=== PATIENT | female | born 1935 | race Caucasian/White ===

== ENCOUNTER 2017-03-18 15:08 | Emergency (ER) | payer OTHER ==
[~2017-03-18] VITALS: Ht 167.6 cm; Wt 56.7 kg
[~2017-03-18 15:08] MED LIST: ACET325T16 PO; ALPR0.25 PO; AMIO200T2 PO; ATOR20TA58 PO; ATOR40TA PO; BUDE10.22 IH; CHOL100013 PO; CITA20TA9 PO; CITA40TA12 PO; CITA40TA5 PO; DIGO125T PO; DILT120C80 PO; DRON400T PO; FAMO-63 PO; FAMO20TA5 PO; FURO-69 PO; FURO40TA4 PO; GLUC100018 PO; HYDR-2766 PO; LEVO112T4 PO; LISI-338 PO; METO10TA81 PO; METO5TAB55 PO; MORP30TA PO; MORP30TA3 PO; MULT1TAB52 PO; MULT1TAB77 PO; OMEP20CA9 PO; OMEP20TA8 PO; ONDA4TAB11 PO; ONDA4TAB7 PO; PANT40TA3 PO; PANT40TA5 PO; POLY17PO29 PO; SIMV40TA3 PO; SOTA80TA48 PO; WARF1TAB7 PO; WARF1TAB74 PO; WARF3TAB7 PO
--- NOTE | 2017-03-18 15:53 | PHYS DOC ---
Past Medical History Past Medical History: A-Fib, Depression, GERD, Hypertension, Hypothyroid, Other Additional Past Medical Histor: dystonia, muscle weakness, torticollis, skin cancer Past Surgical History: Appendectomy, Other Additional Past Surgical Histo: thyroid.cardiac cath Alcohol Use: None Drug Use: None Adult General Chief Complaint Chief Complaint: LOWER EXTREMITY SWELLING HPI HPI 81-year-old female with a history of atrial fibrillation on Coumadin with which she is compliant and who lives in a snf now presents to the emergency department complaining of bilateral lower extremity swelling below the knees with mottled red areas on the front of both ankles. Mild discomfort of both legs because of edema. No chest pain or shortness of breath. Patient has no fevers chills sweats or shaking chills. She feels well and does not think it's an infection. Patient is not sure if she is on a diuretic but states she's been taking her medicines as prescribed. Review of Systems Review of Systems Constitutional: Denies fever or chills [] Eyes: Denies change in visual acuity, redness, or eye pain [] HENT: Denies nasal congestion or sore throat [] Respiratory: Denies cough or shortness of breath [] Cardiovascular: No additional information not addressed in HPI [] GI: Denies abdominal pain, nausea, vomiting, bloody stools or diarrhea [] : Denies dysuria or hematuria [] Musculoskeletal: Denies back pain or joint pain [] Integument: Denies rash or skin lesions [] Neurologic: Denies headache, focal weakness or sensory changes [] Endocrine: Denies polyuria or polydipsia [] Current Medications Current Medications Current Medications Medications (Trade) Dose Ordered Sig/Regan Start Time Stop Time Status Last Admin Dose Admin Furosemide (Lasix) 40 mg 1X ONCE 03/18/17 16:00 03/18/17 16:01 DC 03/18/17 16:21 40 MG Allergies Allergies Allergies Coded Allergies Type Severity Reaction Last Updated Verified No Known Drug Allergies 11/20/13 No Physical Exam Physical Exam Well appearing female no acute distress alert communicative and appropriate. Patient has a resting tremor which she states is her baseline. Clear lungs no Rales, no tachycardia, benign abdomen. 2+ pitting edema bilateral lower extremities below the knees with no asymmetry. Mild lacelike pattern of erythema on the anterior aspect of both ankles. Nontender no warmth or fluctuance or crepitus Constitutional: Well developed, well nourished, no acute distress, non-toxic appearance. [] HENT: Normocephalic, atraumatic, bilateral external ears normal, oropharynx moist, no oral exudates, nose normal. [] Eyes: PERRLA, EOMI, conjunctiva normal, no discharge. [] Neck: Normal range of motion, no tenderness, supple, no stridor. [] Cardiovascular:Heart rate regular rhythm, no murmur [] Lungs & Thorax: Bilateral breath sounds clear to auscultation [] Abdomen: Bowel sounds normal, soft, no tenderness, no masses, no pulsatile masses. [] Skin: Warm, dry, no erythema, no rash. [] Back: No tenderness, no CVA tenderness. [] Extremities: No tenderness, no cyanosis, no clubbing, ROM intact, no edema. [] Neurologic: Alert and oriented X 3, normal motor function, normal sensory function, no focal deficits noted. [] Psychologic: Affect normal, judgement normal, mood normal. [] Current Patient Data Vital Signs Vital Signs Date Time Temp Pulse Resp B/P (MAP) Pulse Ox O2 Delivery O2 Flow Rate FiO2 03/18/17 17:18 80 20 144/83 (103) 91 Room Air 03/18/17 15:28 98.4 98.4 Lab Values Laboratory Tests Test 03/18/17 15:57 White Blood Count 8.4 x10^3/uL (4.0-11.0) Red Blood Count 4.15 x10^6/uL (3.50-5.40) Hemoglobin 12.4 g/dL (12.0-15.5) Hematocrit 37.8 % (36.0-47.0) Mean Corpuscular Volume 91 fL (79-100) Mean Corpuscular Hemoglobin 30 pg (25-35) Mean Corpuscular Hemoglobin Concent 33 g/dL (31-37) Red Cell Distribution Width 15.8 % (11.5-14.5) H Platelet Count 233 x10^3/uL (140-400) Neutrophils (%) (Auto) 54 % (31-73) Lymphocytes (%) (Auto) 33 % (24-48) Monocytes (%) (Auto) 11 % (0-9) H Eosinophils (%) (Auto) 2 % (0-3) Basophils (%) (Auto) 1 % (0-3) Neutrophils # (Auto) 4.5 x10^3uL (1.8-7.7) Lymphocytes # (Auto) 2.7 x10^3/uL (1.0-4.8) Monocytes # (Auto) 0.9 x10^3/uL (0.0-1.1) Eosinophils # (Auto) 0.1 x10^3/uL (0.0-0.7) Basophils # (Auto) 0.1 x10^3/uL (0.0-0.2) Laboratory Tests 03/18/17 15:57 EKG EKG [] Radiology/Procedures Radiology/Procedures Doppler bilateral lower extremities to rule out DVT [] Course & Med Decision Making Course & Med Decision Making Pertinent Labs and Imaging studies reviewed. (See chart for details) Signs and symptoms consistent with exacerbation of lower extremity edema with 2 + pitting edema bilaterally with minimal soft tissue tenderness apparently secondary to distention. No cords appreciated. Neurovascularly intact with good capillary refill distally. Soft compartments. Minimal areas of mild chronic skin changes on the anterior aspect of both ankles and symmetrical with no clinical signs of mellitus. Patient is afebrile well-appearing and feels well she's just concerned about the swelling in her legs, feet and ankles. Doppler of bilateral lower extremities pending to rule out less likely possibility of DVT. Patient is on Lasix additional dose of IV Lasix given in ED. The patient is aware to elevate feet and follow-up with her primary care doctor tomorrow. No further workup or treatment will be indicated, she agrees with outpatient follow-up and strict return precautions will be given Dragon Disclaimer Dragon Disclaimer This electronic medical record was generated, in whole or in part, using a voice recognition dictation system. Departure Departure Impression: Primary Impression: Leg edema Additional Impression: Unspecified skin changes Disposition: 01 HOME, SELF-CARE Condition: GOOD Referrals: CAROLEE DELANEY MD (PCP) Patient Instructions: Peripheral Edema Additional Instructions: You have increased leg edema today. His means you are retaining more fluid in your lower extremities below the knees that is typical for you. I'll redness on the front of both ankles does not represent a skin infection but instead his chronic skin changes as a result of edema and distention of your legs with stretching of the skin. You are on Lasix which is a diuretic, or fluid pill. We have given U an extra dose of Lasix today in your IV to help get some of this fluid off. Up with your doctor tomorrow for reevaluation and to discuss potential change in your diuretic regimen including dose or frequency adjustment of your Lasix therapy. Problem Qualifiers CORINE THORPE MD Mar 18, 2017 15:53
[2017-03-18] MEDS ORDERED: FUROSEMIDE 40 MG/4 ML VIAL. IVP ONE (16:00)
[2017-03-18 16:25] LABS: BASO # 0.1 x10^3/uL (0.0-0.2); BASO % 1 % (0-3); EOS % 2 % (0-3); HEMATOCRIT 37.8 % (36.0-47.0); HEMOGLOBIN 12.4 g/dL (12.0-15.5); LYMPH # 2.7 x10^3/uL (1.0-4.8); LYMPH % 33 % (24-48); MEAN CORPUSCULAR HEMOGLOBIN 30 pg (25-35); MEAN CORPUSCULAR HGB CONC 33 g/dL (31-37); MEAN CORPUSCULAR VOLUME 91 fL (79-100); MONO % 11 % (0-9); NEUT % 54 % (31-73); PLATELET COUNT 233 x10^3/uL (140-400); RED BLOOD COUNT 4.15 x10^6/uL (3.50-5.40); RED CELL DISTRIBUTION WIDTH 15.8 % (11.5-14.5); WHITE BLOOD COUNT 8.4 x10^3/uL (4.0-11.0)
[2017-03-18 17:48] VITALS: BP 143/77
--- NOTE | 2017-03-18 18:13 | RAD ---
Examination: Bilateral Lower Extremity Venous Doppler Ultrasound History: Leg swelling Comparison: None Procedure: Elliott scale, color flow 2D and spectal waveform analysis images are obtained with and without compression in the area of the common femoral vein, superficial femoral vein - femoral vein junction, main femoral vein (superficial femoral vein) and popliteal vein. Veins of the proximal calf are also imaged. Findings: There is normal duplex flow, color flow and compressibility of all visualized vein segments. No evidence of deep venous thrombus is present. Impression: No evidence of DVT. Electronically signed by: Brant Garcia MD (03/18/2017 6:10 PM) [facility]
== END 2017-03-18 18:36 | disposition home or self-care (01) ==
LOC: ER 15:08
DX: R60.0 Localized edema (principal); R23.9 Unspecified skin changes; E03.9 Hypothyroidism, unspecified; I10 Essential (primary) hypertension; I48.91 Unspecified atrial fibrillation; K21.9 Gastro-esophageal reflux disease without esophagitis; Z79.01 Long term (current) use of anticoagulants; Z85.828 Personal history of other malignant neoplasm of skin; Z90.49 Acquired absence of other specified parts of digestive tract
CPT/HCPCS: 36415; 85027; 93970; 96374; 99285; J1940

== ENCOUNTER 2018-01-15 06:05 | Emergency (ER) | payer OTHER | END 2018-01-15 10:10 | LOC: ER 06:05 | DX: S00.93XA Contusion of unspecified part of head, initial encounter (principal); M25.562 Pain in left knee; M25.551 Pain in right hip; I48.91 Unspecified atrial fibrillation; I10 Essential (primary) hypertension; E03.9 Hypothyroidism, unspecified; K21.9 Gastro-esophageal reflux disease without esophagitis; W18.09XA Striking against other object with subsequent fall, initial encounter; Y93.89 Activity, other specified; Y99.8 Other external cause status; Y92.89 Other specified places as the place of occurrence of the external cause | CPT/HCPCS: 70450; 72125; 73521; 73562; 99284; 99284-25; 99285 ==

== ENCOUNTER 2018-05-30 18:57 | Emergency (ER) | payer OTHER ==
[~2018-05-30] VITALS: Ht 162.6 cm; Wt 56.7 kg
[~2018-05-30 18:57] MED LIST changes: -AMIO200T2 PO; +AMIO200T4 PO; +ASPI-612 PO; +CLON0.5T11 PO; +ERGO500027 PO; +ESCITALOPRAM OX10 MG PO; +FERR325T72 PO; +GABA-585 PO; +GUAI600T79 PO; +IPRA3AMP29 NEB; +METO25TA4 PO; +POTA10TA12 PO; +POTA20TA4 PO; +SENN-22 PO; +TAMS0.4C97 PO; +WARF1TAB69 PO; -WARF1TAB7 PO; +WARF2.5T83 PO; +WARF3TAB50 PO; -WARF3TAB7 PO
--- NOTE | 2018-05-30 19:58 | PHYS DOC ---
Past Medical History Past Medical History: A-Fib, COPD, Depression, GERD, High Cholesterol, Hypertension, Hypothyroid, Renal Disease, Other Additional Past Medical Histor: dystonia, muscle weakness, torticollis, skin cancer Past Surgical History: Appendectomy, Hip Replacement, Other Additional Past Surgical Histo: thyroid.cardiac cath Alcohol Use: None Drug Use: None Adult General Chief Complaint Chief Complaint: MECHANICAL FALL HPI HPI Patient is a 83 year old female presenting after a mechanical fall at her assisted living facility. Patient notes she was getting up out of a chair and she tripped falling into her television. Patient is now complaining of right lateral neck pain and right leg pain. Patient denies loss of consciousness, vomiting, change in mental status since the fall. Patient denies any blood thinner use but there is a history of Warfarin use on her medical record from December, and patient is not sure of all the medications she takes. Patient denies any chest pain, shortness of breath, dizziness, or syncope. Patient notes her right leg pain is located on the upper lateral right thigh. Patient is unable to describe the pain and denies radiation but endorses a severity of 7 out of 10. Review of Systems Review of Systems Constitutional: Denies fever or chills [] Eyes: Denies change in visual acuity, redness, or eye pain: reports some discharge HENT: Denies nasal congestion or sore throat [] Respiratory: Denies cough or shortness of breath [] Cardiovascular: Chest pain or palpitations[] GI: Denies abdominal pain, nausea, vomiting, bloody stools or diarrhea [] : Denies dysuria or hematuria [] Musculoskeletal: Denies back pain. Notes right leg pain and right neck pain[] Integument: Denies rash or skin lesions [] Neurologic: Denies headache, focal weakness or sensory changes [] Complete systems were reviewed and found to be within normal limits, except as documented in this note. Family History Family History Noncontributory Allergies Allergies Allergies Coded Allergies Type Severity Reaction Last Updated Verified No Known Drug Allergies 11/20/13 No Physical Exam Physical Exam Constitutional: Well developed, well nourished, no acute distress, non-toxic appearance. [] HENT: Normocephalic, atraumatic, bilateral external ears normal, oropharynx moist, no oral exudates, nose normal. [] Eyes: PERRL, EOMI, conjunctiva normal, matting of eyelashes bilaterally with yellow discharge noted in corners of eyes Neck: Normal range of motion, right lateral superior neck tenderness to palpation, supple, no meningismus. [] Cardiovascular:Heart rate regular rhythm, no murmur [] Lungs & Thorax: Bilateral breath sounds clear to auscultation [] Abdomen: Bowel sounds normal, soft, nondistended, no tenderness. [] Skin: Warm, dry, no erythema, no rash. [] Back: No tenderness, no CVA tenderness. [] Extremities: ROM intact in left lower extremity right ankle and knee. Right hip limited range of motion due to pain, right lower extremity lateral proximal tenderness to palpation, no edema. Pelvis stable and nonpainful[] Neurologic: Alert and oriented X 3, normal motor function, normal sensory function, no focal deficits noted, bilateral rest tremor of the hands. [] Psychologic: Affect normal, judgement normal, mood normal. [] Current Patient Data Vital Signs Vital Signs Date Time Temp Pulse Resp B/P (MAP) Pulse Ox O2 Delivery O2 Flow Rate FiO2 05/30/18 21:17 75 05/30/18 18:58 99.2 18 105/89 (94) 92 Room Air 99.2 Lab Values Laboratory Tests Test 05/30/18 20:25 White Blood Count 7.9 x10^3/uL (4.0-11.0) Red Blood Count 3.99 x10^6/uL (3.50-5.40) Hemoglobin 12.0 g/dL (12.0-15.5) Hematocrit 35.3 % (36.0-47.0) L Mean Corpuscular Volume 89 fL (79-100) Mean Corpuscular Hemoglobin 30 pg (25-35) Mean Corpuscular Hemoglobin Concent 34 g/dL (31-37) Red Cell Distribution Width 15.5 % (11.5-14.5) H Platelet Count 253 x10^3/uL (140-400) Neutrophils (%) (Auto) 66 % (31-73) Lymphocytes (%) (Auto) 22 % (24-48) L Monocytes (%) (Auto) 10 % (0-9) H Eosinophils (%) (Auto) 1 % (0-3) Basophils (%) (Auto) 1 % (0-3) Neutrophils # (Auto) 5.3 x10^3uL (1.8-7.7) Lymphocytes # (Auto) 1.7 x10^3/uL (1.0-4.8) Monocytes # (Auto) 0.8 x10^3/uL (0.0-1.1) Eosinophils # (Auto) 0.1 x10^3/uL (0.0-0.7) Basophils # (Auto) 0.0 x10^3/uL (0.0-0.2) Prothrombin Time 13.6 SEC (11.7-14.0) Prothrombin Time INR 1.1 (0.8-1.1) Laboratory Tests 05/30/18 20:25 EKG EKG [] Radiology/Procedures Radiology/Procedures []PROCEDURE: CT HEAD AND CERVICAL SPINE WO CT scan of the head without contrast 05/30/2018 Clinical History: Fall with head injury. Technique: Unenhanced, contiguous, 5 mm axial sections were obtained through the head. One or more of the following individualized dose reduction techniques were utilized for this study: 1. Automated exposure control. 2. Adjustment of the mA and/or kV according to patient size. 3. Use of iterative reconstruction technique. Findings: Comparison study is dated 01/15/2018. There is generalized parenchymal atrophy. Areas of decreased attenuation are seen within the periventricular and subcortical white matter of both cerebral hemispheres consistent with areas of small vessel ischemic disease. No acute parenchymal abnormality is seen. No extra-axial fluid collection is noted. No skull fracture is seen. Impression: No acute intracranial abnormality is seen. CT scan of the cervical spine without contrast 05/30/2018 Clinical history: Neck pain post fall. Technique: Unenhanced, contiguous, 0.625 mm axial sections were obtained through the cervical spine. Axial, coronal and sagittal reconstructed images were obtained. One or more of the following individualized dose reduction techniques were utilized for this study: 1. Automated exposure control. 2. Adjustment of the mA and/or kV according to patient size. 3. Use of iterative reconstruction technique. Findings: Comparison study is dated 01/15/2018. Sagittal and coronal reconstructed images demonstrate slight reversal of the normal cervical lordosis. Degenerative changes consisting of disc space narrowing, vertebral endplate sclerosis and mild to moderate anterior and posterior vertebral body osteophyte formation are seen throughout the mid and lower cervical disc spaces. No fracture or subluxation cervical vertebrae is seen. Degenerative changes are seen involving the uncovertebral and facet joints throughout the mid and lower cervical disc spaces. Impression: No fracture or subluxation of the cervical vertebra is identified. Electronically signed by: Simón Islas MD (05/30/2018 8:27 PM) [facility] PROCEDURE: HIP RIGHT 2V WITH PELVIS AP and lateral right hip radiographs to include an AP radiograph of the pelvis 05/30/2018 CLINICAL HISTORY: Fall with right hip pain. An AP digital radiograph of the pelvis was obtained. AP and lateral digital radiographs of the right hip were obtained. There is diffuse osteopenia of the visualized bony structures. No pelvic bone fracture is seen. The patient is post right SAJAN. The prosthetic components are intact. No fracture or dislocation of the right hip is seen. Mild degenerative changes are seen involving the left hip. IMPRESSION: No fracture or dislocation is seen. Electronically signed by: Simón Islas MD (05/30/2018 8:37 PM) [facility] Course & Med Decision Making Course & Med Decision Making 83-year-old female presenting after mechanical fall at her assisted living facility. Patient notes she tripped and struck her right lateral neck on her television. On arrival patient endorses right lateral neck pain and right proximal leg pain. Patient she is not taking any blood thinning medications, but she is unable to name the medication she takes on a daily basis, and she has a history of warfarin use noted in December 2017. Imaging was collected and reviewed noting CT head and C-spine and radiographs of the right hip. All imaging negative. On physical exam I was noted the patient had crusting and discharge from bilateral eyes. Patient prescribed Polytrim ophthalmic suspension.Patient stable for discharge back to SNF with outpatient follow-up with PCP. Discussed findings and plan with patient, who acknowledge understanding and agreement. [] Dragon Disclaimer Dragon Disclaimer This electronic medical record was generated, in whole or in part, using a voice recognition dictation system. Departure Departure Impression: Primary Impression: Fall Additional Impressions: Conjunctivitis Contusion of hip, right Disposition: 03 TRANSFER SNF (return) Condition: STABLE Referrals: CAROLEE DELANEY MD (PCP) Patient Instructions: Conjunctivitis (Viral and Bacterial), Contusion, Easy-to- Read, Fall Prevention in Hospitals Scripts Polymyxin B Sulf/Trimethoprim (POLYTRIM EYE DROPS) 10 Ml Drops 1 DROP EACHEYE Q6HRS, #10 ML Prov: CORINE LOO DO 05/30/18 Problem Qualifiers Primary Impression: Fall Encounter type: initial encounter Qualified Codes: W19.XXXA - Unspecified fall, initial encounter Additional Impressions: Conjunctivitis Conjunctivitis type: unspecified Laterality: bilateral Qualified Codes: H10.9 - Unspecified conjunctivitis Contusion of hip, right Encounter type: initial encounter Qualified Codes: S70.01XA - Contusion of right hip, initial encounter CORINE LOO DO May 30, 2018 19:58
--- NOTE | 2018-05-30 20:30 | RAD ---
CT scan of the head without contrast 05/30/2018 Clinical History: Fall with head injury. Technique: Unenhanced, contiguous, 5 mm axial sections were obtained through the head. One or more of the following individualized dose reduction techniques were utilized for this study: 1. Automated exposure control. 2. Adjustment of the mA and/or kV according to patient size. 3. Use of iterative reconstruction technique. Findings: Comparison study is dated 01/15/2018. There is generalized parenchymal atrophy. Areas of decreased attenuation are seen within the periventricular and subcortical white matter of both cerebral hemispheres consistent with areas of small vessel ischemic disease. No acute parenchymal abnormality is seen. No extra-axial fluid collection is noted. No skull fracture is seen. Impression: No acute intracranial abnormality is seen. CT scan of the cervical spine without contrast 05/30/2018 Clinical history: Neck pain post fall. Technique: Unenhanced, contiguous, 0.625 mm axial sections were obtained through the cervical spine. Axial, coronal and sagittal reconstructed images were obtained. One or more of the following individualized dose reduction techniques were utilized for this study: 1. Automated exposure control. 2. Adjustment of the mA and/or kV according to patient size. 3. Use of iterative reconstruction technique. Findings: Comparison study is dated 01/15/2018. Sagittal and coronal reconstructed images demonstrate slight reversal of the normal cervical lordosis. Degenerative changes consisting of disc space narrowing, vertebral endplate sclerosis and mild to moderate anterior and posterior vertebral body osteophyte formation are seen throughout the mid and lower cervical disc spaces. No fracture or subluxation cervical vertebrae is seen. Degenerative changes are seen involving the uncovertebral and facet joints throughout the mid and lower cervical disc spaces. Impression: No fracture or subluxation of the cervical vertebra is identified. Electronically signed by: Simón Islas MD (05/30/2018 8:27 PM) [facility]
[2018-05-30 20:33] LABS: BASO % 1 % (0-3); EOS # 0.1 x10^3/uL (0.0-0.7); EOS % 1 % (0-3); HEMATOCRIT 35.3 % (36.0-47.0); LYMPH # 1.7 x10^3/uL (1.0-4.8); LYMPH % 22 % (24-48); MEAN CORPUSCULAR HEMOGLOBIN 30 pg (25-35); MEAN CORPUSCULAR HGB CONC 34 g/dL (31-37); MEAN CORPUSCULAR VOLUME 89 fL (79-100); MONO # 0.8 x10^3/uL (0.0-1.1); MONO % 10 % (0-9); NEUT # 5.3 x10^3uL (1.8-7.7); NEUT % 66 % (31-73); PLATELET COUNT 253 x10^3/uL (140-400); RED BLOOD COUNT 3.99 x10^6/uL (3.50-5.40); RED CELL DISTRIBUTION WIDTH 15.5 % (11.5-14.5); WHITE BLOOD COUNT 7.9 x10^3/uL (4.0-11.0)
--- NOTE | 2018-05-30 20:41 | RAD ---
AP and lateral right hip radiographs to include an AP radiograph of the pelvis 05/30/2018 CLINICAL HISTORY: Fall with right hip pain. An AP digital radiograph of the pelvis was obtained. AP and lateral digital radiographs of the right hip were obtained. There is diffuse osteopenia of the visualized bony structures. No pelvic bone fracture is seen. The patient is post right SAJAN. The prosthetic components are intact. No fracture or dislocation of the right hip is seen. Mild degenerative changes are seen involving the left hip. IMPRESSION: No fracture or dislocation is seen. Electronically signed by: Simón Islas MD (05/30/2018 8:37 PM) [facility]
[2018-05-30 20:42] LABS: PROTHROMBIN TIME PATIENT 13.6 SEC (11.7-14.0)
[2018-05-30] MEDS ORDERED: POLY10DR EACHEYE (21:02)
[2018-05-30 21:17] VITALS: BP 129/77
== END 2018-05-30 21:38 ==
LOC: ER 18:58
DX: S70.01XA Contusion of right hip, initial encounter (principal); H10.9 Unspecified conjunctivitis; J44.9 Chronic obstructive pulmonary disease, unspecified; I48.91 Unspecified atrial fibrillation; K21.9 Gastro-esophageal reflux disease without esophagitis; E78.00 Pure hypercholesterolemia, unspecified; E03.9 Hypothyroidism, unspecified; N28.9 Disorder of kidney and ureter, unspecified; I10 Essential (primary) hypertension; W01.198A Fall on same level from slipping, tripping and stumbling with subsequent striking against other object, initial encounter; Y93.89 Activity, other specified; Y92.89 Other specified places as the place of occurrence of the external cause; Y99.8 Other external cause status
CPT/HCPCS: 36415; 70450; 72125; 73502; 85025; 85610; 99285-25

== ENCOUNTER → 2020-09-14 | Outpatient (CLI) | payer MEDICARE ==
[2020-08-26 03:33] VITALS: BP 95/50
[~2020-09-14] MED LIST changes: +ACET-2061 PO; -ACET325T16 PO; +ALBU2.5V8 IH; -AMIO200T4 PO; +AMIO200T6 PO; -ASPI-612 PO; +ASPI-886 PO; +BENZ-8 PO; +CARB-183 PO; +CEPH500T PO; +CIPR500T94 PO; +CLON-77 PO; -CLON0.5T11 PO; -DIGO125T PO; +DIGO125T3 PO; -DILT120C80 PO; +DILT120C99 PO; +DILT240C2 PO; -DRON400T PO; +DRON400T6 PO; +ESCITALOPRAM OXA5 M1 PO; +FURO20TA3 PO; +GABA300C18 PO; +GUAI600T47 PO; -HYDR-2766 PO; +HYDR-2769 PO; +IPRA4AER IH; -LEVO112T4 PO; +LEVO112T49 PO; +LEVO88TA70 PO; -LISI-338 PO; +LISI-517 PO; +LISI2.5T PO; +LORA0.5T96 PO; +METO-239 PO; +MIRT7.5T8 PO; +MORP-16 PO; -MORP30TA3 PO; +MORP30TA83 PO; +MULT-445 PO; -MULT1TAB52 PO; -MULT1TAB77 PO; +MULT1TAB78 PO; +OMEP20CA16 PO; -OMEP20CA9 PO; +ONDA-84 PO; -ONDA4TAB11 PO; -PANT40TA3 PO; -PANT40TA5 PO; +PANT40TA77 PO; +POLY10DR EACHEYE; +SIMV40TA18 PO; -SIMV40TA3 PO; +WARF1TAB2 PO; -WARF1TAB74 PO; +WARF2.5T2 PO; -WARF2.5T83 PO
[2020-09-14 12:06] LABS: HEMATOCRIT 31.1 % (36.0-47.0); HEMOGLOBIN 10.2 g/dL (12.0-15.5); MEAN CORPUSCULAR HEMOGLOBIN 27 pg (25-35); MEAN CORPUSCULAR HGB CONC 33 g/dL (31-37); MEAN CORPUSCULAR VOLUME 82 fL (79-100); NEUT % 70 % (31-73); PLATELET COUNT 27 x10^3/uL (140-400); RED BLOOD COUNT 3.78 x10^6/uL (3.50-5.40); RED CELL DISTRIBUTION WIDTH 17.4 % (11.5-14.5)
[2020-09-14 12:07] LABS: BASO % 0 % (0-3); EOS % 0 % (0-3); LYMPH % 21 % (24-48); MONO # 0.4 x10^3/uL (0.0-1.1); MONO % 9 % (0-9); NEUT # 3.4 x10^3/uL (1.8-7.7)
[2020-09-14 12:16] LABS: CALCIUM 7.7 mg/dL (8.5-10.1); CREATININE 1.1 mg/dL (0.6-1.0); GFR 47.1; POTASSIUM 4.1 mmol/L (3.5-5.1)
[2020-09-14 12:18] LABS: ALBUMIN 2.2 g/dL (3.4-5.0); ALBUMIN/GLOBULIN RATIO 0.7 (1.0-1.7); TOTAL BILIRUBIN 0.9 mg/dL (0.2-1.0); TOTAL PROTEIN 5.4 g/dL (6.4-8.2)
[2020-09-15 10:31] LABS: WHITE BLOOD COUNT 4.9 x10^3/uL (4.0-11.0)
[2020-09-15 14:13] LABS: KAPPA FREE 40.7 mg/L (3.3-19.4); LAMBDA FREE 20.3 mg/L (5.7-26.3)
[2020-09-15 19:10] LABS: ALBUM 2.7 g/dL (2.9-4.4); ALPHA 1 0.3 g/dL (0.0-0.4); ALPHA 2 0.8 g/dL (0.4-1.0); BETA 0.7 g/dL (0.7-1.3); GAMMA 0.9 g/dL (0.4-1.8); PROTEIN TOTAL 5.3 g/dL (6.0-8.5)
== END ==
LOC: ONCLAB 11:37
PROVIDERS: ATTEND Internal Medicine Hematology & Oncology
DX: D69.6 Thrombocytopenia, unspecified (principal)
CPT/HCPCS: 36415; 80053; 82525; 82607; 82746; 83520; 84165; 85025

== ENCOUNTER 2020-09-15 14:26 | Observation (INO) | payer MEDICARE ==
[~2020-09-15] VITALS: Ht 167.6 cm; Wt 54.0 kg
[~2020-09-15 14:26] MED LIST changes: -ALBU2.5V8 IH; -CEPH500T PO; -DILT240C2 PO; -ESCITALOPRAM OXA5 M1 PO; -IPRA4AER IH; -MIRT7.5T8 PO; -MORP30TA83 PO
[2020-09-15 14:59] LABS: BASO % 1 % (0-3); EOS % 0 % (0-3); HEMATOCRIT 26.4 % (36.0-47.0); HEMOGLOBIN 8.8 g/dL (12.0-15.5); LYMPH # 0.4 x10^3/uL (1.0-4.8); LYMPH % 15 % (24-48); MEAN CORPUSCULAR HEMOGLOBIN 27 pg (25-35); MEAN CORPUSCULAR HGB CONC 33 g/dL (31-37); MEAN CORPUSCULAR VOLUME 81 fL (79-100); MONO # 0.3 x10^3/uL (0.0-1.1); MONO % 9 % (0-9); NEUT # 2.2 x10^3/uL (1.8-7.7); NEUT % 75 % (31-73); PLATELET COUNT 29 x10^3/uL (140-400); RED BLOOD COUNT 3.26 x10^6/uL (3.50-5.40); RED CELL DISTRIBUTION WIDTH 17.6 % (11.5-14.5)
[2020-09-15 15:11] LABS: CALCIUM 6.9 mg/dL (8.5-10.1); CREATININE 0.9 mg/dL (0.6-1.0); GFR 59.4; POTASSIUM 3.8 mmol/L (3.5-5.1)
[2020-09-15 15:17] LABS: PLT ESTIMATE DECREASED (ADEQUATE)
[2020-09-15 15:18] LABS: ALBUMIN 1.8 g/dL (3.4-5.0); ALBUMIN/GLOBULIN RATIO 0.7 (1.0-1.7); TOTAL BILIRUBIN 1.1 mg/dL (0.2-1.0); TOTAL PROTEIN 4.3 g/dL (6.4-8.2)
[2020-09-15 15:35] LABS: ANISOCYTOSIS SLIGHT; TARGET CELLS FEW
[2020-09-15 16:39] LABS: BILIRUBIN,URINE NEGATIVE (NEG); CLARITY,URINE CLEAR; COLOR,URINE YELLOW; NITRITE,URINE NEGATIVE (NEG); PH,URINE 5.5 (<5.0-8.0); PROTEIN,URINE NEGATIVE (NEG-TRACE)
[2020-09-15 16:55] LABS: HYALINE CASTS, URINE FEW /HPF
[2020-09-15 16:56] LABS: BACTERIA,URINE 0 /HPF (0-FEW); RBC,URINE 0 /HPF (0-2); WBC,URINE 0 /HPF (0-4)
[2020-09-15] MEDS ORDERED: IV NORMAL SALINE 1000ML BAG 1,000 ML IV ONE (17:00)
--- NOTE | 2020-09-15 17:15 | ED.ADGEN ---
Past Medical History Past Medical History: A-Fib, COPD, Depression, GERD, High Cholesterol, Hypertension, Hypothyroid, Renal Disease, Other Additional Past Medical Histor: dystonia, muscle weakness, torticollis, skin cancer Past Surgical History: Appendectomy, Hip Replacement, Other Additional Past Surgical Histo: thyroid.cardiac cath Smoking Status: Never Smoker Alcohol Use: None Drug Use: None General Adult EDM: Chief Complaint: WEAKNESS/GENERALIZED HPI: HPI: Patient is an 85-year-old female who presents to the emergency room with reported weakness. History is significantly limited as patient has no complaints and is confused at baseline. It is unclear exactly why patient was sent here to the emergency room. Review of Systems: Review of Systems: Complete ROS is negative unless otherwise documented in HPI Current Medications: Current Medications Medications (Trade) Dose Ordered Sig/Regan Start Time Stop Time Status Last Admin Dose Admin Sodium Chloride 1,000 ml @ 1,000 mls/hr 1X ONCE 09/15/20 17:00 09/15/20 17:59 DC 09/15/20 17:00 1,000 MLS/HR Allergies: Allergies: Physical Exam: PE: General: Awake, alert, NAD. Well Nourished, well hydrated. Cooperative HEENT: Atraumatic, EOMI, PERRL, airway patent, moist oral mucosa Neck: Supple, trachea midline Respiratory: CTA bilaterally, normal effort, no wheezing/crackles CV: RRR, no murmur, cap refill <2 GI: Soft, nondistended, nontender, no masses MSK: No obvious deformities Skin: Warm, dry, intact Neuro: A&O x1, speech NL, sensory and motor grossly intact, no focal deficits, confused Psych: Normal affect, normal mood, not suicidal or homicidal Current Patient Data: Labs: Laboratory Tests Test 09/15/20 14:45 09/15/20 16:33 White Blood Count 3.0 x10^3/uL (4.0-11.0) L Red Blood Count 3.26 x10^6/uL (3.50-5.40) L Hemoglobin 8.8 g/dL (12.0-15.5) L Hematocrit 26.4 % (36.0-47.0) L Mean Corpuscular Volume 81 fL (79-100) Mean Corpuscular Hemoglobin 27 pg (25-35) Mean Corpuscular Hemoglobin Concent 33 g/dL (31-37) Red Cell Distribution Width 17.6 % (11.5-14.5) H Platelet Count 29 x10^3/uL (140-400) L Neutrophils (%) (Auto) 75 % (31-73) H Lymphocytes (%) (Auto) 15 % (24-48) L Monocytes (%) (Auto) 9 % (0-9) Eosinophils (%) (Auto) 0 % (0-3) Basophils (%) (Auto) 1 % (0-3) Neutrophils # (Auto) 2.2 x10^3/uL (1.8-7.7) Lymphocytes # (Auto) 0.4 x10^3/uL (1.0-4.8) L Monocytes # (Auto) 0.3 x10^3/uL (0.0-1.1) Eosinophils # (Auto) 0.0 x10^3/uL (0.0-0.7) Basophils # (Auto) 0.0 x10^3/uL (0.0-0.2) Platelet Estimate Decreased (ADEQUATE) Anisocytosis Slight Target Cells Few Sodium Level 135 mmol/L (136-145) L Potassium Level 3.8 mmol/L (3.5-5.1) Chloride Level 101 mmol/L (98-107) Carbon Dioxide Level 29 mmol/L (21-32) Anion Gap 5 (6-14) L Blood Urea Nitrogen 31 mg/dL (7-20) H Creatinine 0.9 mg/dL (0.6-1.0) Estimated GFR (Cockcroft-Gault) 59.4 BUN/Creatinine Ratio 34 (6-20) H Glucose Level 215 mg/dL (70-99) H Calcium Level 6.9 mg/dL (8.5-10.1) L Total Bilirubin 1.1 mg/dL (0.2-1.0) H Aspartate Amino Transferase (AST) 91 U/L (15-37) H Alanine Aminotransferase (ALT) 25 U/L (14-59) Alkaline Phosphatase 64 U/L (46-116) Troponin I Quantitative < 0.017 ng/mL (0.000-0.055) Total Protein 4.3 g/dL (6.4-8.2) L Albumin 1.8 g/dL (3.4-5.0) L Albumin/Globulin Ratio 0.7 (1.0-1.7) L Urine Collection Type U cath Urine Color Yellow Urine Clarity Clear Urine pH 5.5 (<5.0-8.0) Urine Specific [place] 1.015 (1.000-1.030) Urine Protein Negative mg/dL (NEG-TRACE) Urine Glucose (UA) Negative mg/dL (NEG) Urine Ketones (Stick) Negative mg/dL (NEG) Urine Blood Negative (NEG) Urine Nitrite Negative (NEG) Urine Bilirubin Negative (NEG) Urine Urobilinogen Dipstick 4.0 mg/dL (0.2 mg/dL) Urine Leukocyte Esterase Negative (NEG) Urine RBC 0 /HPF (0-2) Urine WBC 0 /HPF (0-4) Urine Squamous Epithelial Cells Few /LPF Urine Bacteria 0 /HPF (0-FEW) Urine Hyaline Casts Few /HPF Urine Mucus Mod /LPF Laboratory Tests 09/15/20 14:45 Laboratory Tests 09/15/20 14:45 Vital Signs: Vital Signs Date Time Temp Pulse Resp B/P (MAP) Pulse Ox O2 Delivery O2 Flow Rate FiO2 09/15/20 17:30 66 20 99 09/15/20 14:26 98.7 89/52 (64) Nasal Cannula 1.0 98.7 EKG: EKG: [] Heart Score: Risk Factors: Risk Factors: DM, Current or recent (<one month) smoker, HTN, HLP, family history of CAD, obesity. Risk Scores: Score 0 - 3: 2.5% MACE over next 6 weeks - Discharge Home Score 4 - 6: 20.3% MACE over next 6 weeks - Admit for Clinical Observation Score 7 - 10: 72.7% MACE over next 6 weeks - Early Invasive Strategies Radiology/Procedures: Radiology/Procedures: [] Course & Med Decision Making: Course & Med Decision Making Pertinent Labs and Imaging studies reviewed. (See chart for details) Patient is a 85-year-old female with a history of dementia who presents to the emergency room complaining of generalized weakness. . Patient does not have any complaints. Given age and history differential for generalized weakness includes dehydration, electrolyte abnormalities, anemia, infection, arrhythmia, medication side effect. At this time CBC, BMP, EKG, UA, troponin, chest x-ray were ordered to evaluate for causes of weakness. Patient does appear dehydrated and was given fluids. Hemoglobin appears to be trending down on review. I have discussed the case with Dr Delaney who will admit for observation. No signs of current bleeding. Dragon Disclaimer: Marcial Disclaimer: This electronic medical record was generated, in whole or in part, using a voice recognition dictation system. Departure Departure Impression: Primary Impression: Weakness Additional Impression: Dehydration Disposition: 09 ADMITTED INPT THIS HOSP Condition: STABLE Referrals: CAROLEE DELANEY MD (PCP) Problem Qualifiers JYOTI PERERA MD Sep 15, 2020 17:15
[2020-09-16 03:00] VITALS: BP 121/64
[2020-09-16 07:00] VITALS: BP 129/64
[2020-09-16] MEDS ORDERED: METO-239 PO (07:20)
[2020-09-16] MEDS ORDERED: ESCITALOPRAM OXA5 M1 PO (07:20)
[2020-09-16] MEDS ORDERED: FURO20TA3 PO (07:20)
[2020-09-16] MEDS ORDERED: DILT240C2 PO (07:20)
[2020-09-16] MEDS ORDERED: MIRT7.5T8 PO (07:20)
[2020-09-16] MEDS ORDERED: POTA10TA12 PO (07:20)
[2020-09-16] MEDS ORDERED: IPRA4AER IH (07:20)
[2020-09-16] MEDS ORDERED: MORP30TA83 PO (07:20)
[2020-09-16] MEDS ORDERED: DILT120C99 PO (07:55)
[2020-09-16] MEDS ORDERED: ALBU2.5V8 IH (07:55)
[2020-09-16] MEDS ORDERED: CEPH500T PO (07:55)
[2020-09-16 08:20] LABS: BASO % 1 % (0-3); EOS % 0 % (0-3); HEMOGLOBIN 9.2 g/dL (12.0-15.5); LYMPH # 0.7 x10^3/uL (1.0-4.8); LYMPH % 19 % (24-48); MEAN CORPUSCULAR HEMOGLOBIN 27 pg (25-35); MEAN CORPUSCULAR HGB CONC 33 g/dL (31-37); MEAN CORPUSCULAR VOLUME 81 fL (79-100); MONO # 0.3 x10^3/uL (0.0-1.1); MONO % 9 % (0-9); NEUT # 2.7 x10^3/uL (1.8-7.7); NEUT % 72 % (31-73); PLATELET COUNT 33 x10^3/uL (140-400); RED BLOOD COUNT 3.46 x10^6/uL (3.50-5.40); RED CELL DISTRIBUTION WIDTH 17.5 % (11.5-14.5); WHITE BLOOD COUNT 3.8 x10^3/uL (4.0-11.0)
[2020-09-16 08:46] LABS: ALBUMIN 1.7 g/dL (3.4-5.0); ALBUMIN/GLOBULIN RATIO 0.6 (1.0-1.7); CALCIUM 7.5 mg/dL (8.5-10.1); CREATININE 0.5 mg/dL (0.6-1.0); POTASSIUM 4.2 mmol/L (3.5-5.1); TOTAL BILIRUBIN 1.1 mg/dL (0.2-1.0); TOTAL PROTEIN 4.4 g/dL (6.4-8.2)
[2020-09-16] MEDS ORDERED: NON FORMULARY ITEM (Ipratropium/Albuterol Sulfate (Combivent Respimat Inhal) 2 INH) IH SCH (09:00)
[2020-09-16] MEDS ORDERED: ONDANSETRON ODT 4 MG TAB.RAPDIS. PO PRN (09:45)
--- NOTE | 2020-09-16 09:48 | SNU/HH DC ---
DISCHARGE ORDERS DISCHARGE INFORMATION: FINAL DIAGNOSIS Problems Medical Problems: (1) Dehydration Status: Acute (2) Weakness Status: Acute CONDITION ON DISCHARGE: Stable POST DISCHARGE ORDERS: ACTIVITY ORDERS: Resume previous activity (in wheel chair) WEIGHT BEARING STATUS: No restrictions, Full weight bearing, As tolerated DIET AFTER DISCHARGE: Cardiac OTHER ORDERS: Fall precautions CHECKS AFTER DISCHARGE: CHECKS AFTER DISCHARGE: Check blood press - daily FOLLOW-UP: LAB ORDERS FOR FOLLOW-UP: CBC,CMP in 5 days TREATMENT/EQUIPMENT ORDERS: Physical Therapy For: Evalulation/Treatment Occupational Therapy For: Evaluation/Treatment DISCHARGE MEDICATIONS: Home Meds Active Scripts Gabapentin (GABAPENTIN) 300 Mg Capsule, 300 MG PO TID for neuropathy for 30 Days, #90 CAP 3 Refills Prov:CAROLEE DELANEY MD 11/04/19 Levothyroxine Sodium (SYNTHROID) 88 Mcg Tablet, 88 MCG PO DAILY06 for hypothyroidism for 30 Days, #30 TAB 5 Refills Prov:CAROLEE DELANEY MD 11/04/19 Amiodarone Hcl (AMIODARONE HCL) 200 Mg Tablet, 200 MG PO DAILY for paroxysmal atrial fibrillation for 30 Days, #30 TAB 5 Refills Prov:CAROLEE DELANEY MD 11/04/19 Hydrocodone Bit/Acetaminophen (HYDROCODONE-APAP 10-325 ) 1 Each Tablet, 1 TAB PO PRN Q6HRS PRN for MODERATE, SEVERE PAIN, #120 TAB Prov:SLOAN FLORES PHARMACIST APPRENTICE 01/12/16 Reported Medications Albuterol Sulfate (Proair Hfa) 8.5 Gm Hfa.aer.ad, 2 PUFF IH PRN Q4-6HRS PRN for wheezing for 21 Days, #1 INHALER 0 Refills 09/16/20 Diltiazem Hcl (DILTIAZEM 24HR CD) 120 Mg Cap.er.24h, 120 MG PO DAILY for heartrate/bp, CAP.SR 09/16/20 Morphine Sulfate Er (MS CONTIN) 30 Mg Tablet.er, 30 MG PO BID for MUSCLE WEAKNESS, TAB 09/16/20 Mirtazapine (MIRTAZAPINE) 7.5 Mg Tablet, 7.5 MG PO QHS for DEPRESSION, TAB 09/16/20 Ipratropium/Albuterol Sulfate (COMBIVENT RESPIMAT INHAL) 4 Gm Aer.w.adap, 2 INH IH QID for SOA, INHALER 09/16/20 Furosemide (FUROSEMIDE) 20 Mg Tablet, 20 MG PO DAILY for CHF, TAB hold if sbp<100 09/16/20 Escitalopram Oxalate (Escitalopram Oxalate) 5 Mg Tablet, 5 MG PO DAILY for DEPRESSION, TAB 09/16/20 Potassium Chloride (KLOR-CON 10) 10 Meq Tablet.er, 10 MEQ PO DAILY for SUPPLEMENT, TAB 09/16/20 Metoprolol Succinate (METOPROLOL SUCCINATE ( XL )) 25 Mg Tab.er.24h, 12.5 MG PO DAILY for FOR HYPERTENSION, #30 TAB 0 Refills 09/16/20 Carbidopa/Levodopa (SINEMET 25-100 MG TABLET) 1 Each Tablet, 1 TAB PO TID for tremors, TAB 09/09/18 Multivitamin with Folic Acid (Thera Tablet) 400 Mcg Tablet, 400 MCG PO DAILY, TAB 02/24/17 Pantoprazole Sodium (PROTONIX ) 40 Mg Tablet.dr, 1 TAB PO DAILY, #30 TAB 5 Refills 02/24/17 Ondansetron Hcl (ONDANSETRON HCL) 4 Mg Tablet, 1 TAB PO PRN Q8HRS PRN for NAUSEA, #10 TAB 1 Refill 02/24/17 Polyethylene Glycol 3350 (MIRALAX) 17 Gm Powd.pack, 1 PACKET PO DAILY, #30 PACKET 3 Refills 02/24/17 Discontinued Reported Medications Cephalexin (CEPHALEXIN) 500 Mg Tablet, 500 MG PO BID for Uti, TAB 09/16/20 Diltiazem Hcl (CARDIZEM CD) 240 Mg Cap.er.24h, 120 MG PO DAILY for FOR HYPERTENSION, #30 CAP 0 Refills 09/16/20 CAROLEE DELANEY MD Sep 16, 2020 09:47
[2020-09-16] MEDS: POTASSIUM CHLORIDE 10 MEQ TABLET.ER. PO SCH (09:51)
[2020-09-16] MEDS: GABAPENTIN 300 MG CAPSULE. PO SCH ×3 (09:51→21:00)
[2020-09-16] MEDS: POLYETHYLENE GLYCOL 3350 17 GM PACKET. PO SCH (09:51)
[2020-09-16] MEDS: CITALOPRAM 10 MG TABLET. PO SCH (09:51)
[2020-09-16] MEDS: MORPHINE ER 30 MG TABLET.ER PO SCH ×2 (09:51→21:18)
[2020-09-16] MEDS: AMIODARONE HCL 200 MG TABLET. PO SCH (09:52)
[2020-09-16] MEDS: FUROSEMIDE 20 MG TABLET PO SCH (09:52)
[2020-09-16] MEDS: CARBIDOPA/LEVODOPA 25/100MG TABLET PO SCH ×3 (09:52→21:17)
[2020-09-16] MEDS: METOPROLOL SUCC 24HR ER 25 MG TAB.ER.24H. PO SCH (09:53)
[2020-09-16] MEDS: FOLIC ACID 1 MG TABLET. PO SCH (09:57)
[2020-09-16] MEDS: MULTIVITAMIN with MINERAL TABLET. PO SCH (09:57)
[2020-09-16 11:00] VITALS: BP 102/59
[2020-09-16] MEDS ORDERED: IPRATRPIUM/ALBUTEROL 0.5/2.5MG 3 ML NEBU. NEB SCH (12:00)
[2020-09-16] MEDS: HYDROcodone/APAP 10/325 1 TAB TABLET PO PRN ×2 (12:20→22:08)
[2020-09-16] MEDS: PANTOPRAZOLE 40 MG TABLET.DR. PO SCH (12:21)
--- NOTE | 2020-09-16 12:32 | PDOC2 ---
CONSULT Date of Consult Date of Consult DATE: 09/16/20 TIME: 12:24 Reason for Consult Reason for Consult: Thrombocytopenia Referring Physician Referring Physician: Dr. Lopez Identification/Chief Complaint Chief Complaint Generalized weakness Source Source: Chart review, Patient History of Present Illness Reason for Visit: Mine is a 85-year-old female who has been admitted to the hospital for further evaluation management of generalized weakness. She was seen in my office earlier this week for new onset thrombocytopenia. [facility] [place]. She has recently developed generalized weakness. She denies associated fever or chills or night sweats. She has lost weight over the past few months. Her most recent CBC shows a new onset thrombocytopenia as well as progressive anemia and leukopenia. Additional evaluation was initiated in the office and a follow-up visit was arranged for her. She was brought to the emergency room due to worsening generalized weakness. Hematology consultation has been sought due to thrombocytopenia. Past Medical History Cardiovascular: AFIB, HTN, Hyperlipidemia, Other Pulmonary: COPD CENTRAL NERVOUS SYSTEM: Seizure, Other GI: Diverticulosis, GERD, Hemorrhoids, Other Musculoskeletal: Other Renal/: Chronic renal insuff Endocrine: Hypothyroidism Past Surgical History Past Surgical History: Appendectomy, Cataract Removal, Tonsillectomy, Other Family History Family History: Cancer, Heart Disease, Stroke, Other Social History ALCOHOL: none Drugs: None Current Problem List Problem List Problems Medical Problems: (1) Dehydration Status: Acute (2) Weakness Status: Acute Current Medications Current Medications Current Medications Sodium Chloride 1,000 ml @ 1,000 mls/hr 1X ONCE IV Last administered on 09/15/20at 17:00; Start 09/15/20 at 17:00; Stop 09/15/20 at 17:59; Status DC Amiodarone HCl (Cordarone) 200 mg DAILY PO Last administered on 09/16/20at 09:52; Start 09/16/20 at 10:00 Carbidopa/Levodopa (Sinemet 25/100) 1 tab TID PO Last administered on 09/16/20at 09:52; Start 09/16/20 at 09:15 Diltiazem HCl (Cardizem 24hr Cd) 120 mg DAILY PO Last administered on 09/16/20at 09:52; Start 09/16/20 at 09:15 Furosemide (Lasix) 20 mg DAILY PO Last administered on 09/16/20at 09:52; Start 09/16/20 at 09:15 Gabapentin (Neurontin) 300 mg TID PO Last administered on 09/16/20 09:51; Start 09/16/20 at 09:00 Acetaminophen/ Hydrocodone Bitart (Lortab 10/325) 1 tab PRN Q6HRS PRN PO MODERATE, SEVERE PAIN Last administered on 09/16/20at 12:20; Start 09/16/20 at 09:15 Levothyroxine Sodium (Synthroid) 88 mcg DAILY06 PO ; Start 09/17/20 at 06:00 Metoprolol Succinate (Toprol Xl) 12.5 mg DAILY PO Last administered on 09/16/20at 09:53; Start 09/16/20 at 09:30 Mirtazapine (Remeron) 7.5 mg QHS PO ; Start 09/16/20 at 21:00 Morphine Sulfate (Ms Contin) 30 mg BID PO Last administered on 09/16/20at 09:51; Start 09/16/20 at 10:00 Pantoprazole Sodium (Protonix) 40 mg DAILYAC PO Last administered on 09/16/20at 12:21; Start 09/16/20 at 11:30 Polyethylene Glycol (miraLAX PACKET) 17 gm DAILY PO Last administered on 09/16/20at 09:51; Start 09/16/20 at 10:00 Potassium Chloride (Klor-Con) 10 meq DAILY PO Last administered on 09/16/20at 09:51; Start 09/16/20 at 10:00 Citalopram Hydrobromide (CeleXA) 10 mg DAILY PO Last administered on 09/16/20at 09:51; Start 09/16/20 at 10:00 Non-Formulary Medication (Ipratropium/ Albuterol Sulfate (Combivent Respimat Inhal)) 2 inh QID IH ; Start 09/16/20 at 09:00; Status UNV Multivitamins (Thera M Plus) 1 tab DAILY PO Last administered on 09/16/20at 09:57; Start 09/16/20 at 10:00 Ondansetron HCl (Zofran Odt) 4 mg PRN Q8HRS PRN PO NAUSEA/VOMITING; Start 09/16/20 at 09:45 Folic Acid (Folic Acid) 0.5 mg DAILY PO Last administered on 1/6/21at 09:57; Start 09/16/20 at 10:00 Albuterol/ Ipratropium (Duoneb) 3 ml RTQID NEB ; Start 09/16/20 at 12:00 Active Scripts Active Gabapentin 300 Mg Capsule 300 Mg PO TID 30 Days Synthroid (Levothyroxine Sodium) 88 Mcg Tablet 88 Mcg PO DAILY06 30 Days Amiodarone Hcl 200 Mg Tablet 200 Mg PO DAILY 30 Days Hydrocodone-Apap 10-325 (Hydrocodone Bit/Acetaminophen) 1 Each Tablet 1 Tab PO PRN Q6HRS PRN Reported Proair Hfa (Albuterol Sulfate) 8.5 Gm Hfa.aer.ad 2 Puff IH PRN Q4-6HRS PRN 21 Days Diltiazem 24HR Cd (Diltiazem Hcl) 120 Mg Cap.er.24h 120 Mg PO DAILY Ms Contin (Morphine Sulfate) 30 Mg Tablet.er 30 Mg PO BID Mirtazapine 7.5 Mg Tablet 7.5 Mg PO QHS Combivent Respimat Inhal (Ipratropium/Albuterol Sulfate) 4 Gm Aer.w.adap 2 Inh IH QID Furosemide 20 Mg Tablet 20 Mg PO DAILY hold if sbp<100 Escitalopram Oxalate 5 Mg Tablet 5 Mg PO DAILY Klor-Con 10 (Potassium Chloride) 10 Meq Tablet.er 10 Meq PO DAILY Metoprolol Succinate ( Xl ) (Metoprolol Succinate) 25 Mg Tab.er.24h 12.5 Mg PO DAILY Sinemet 25-100 Mg Tablet (Carbidopa/Levodopa) 1 Each Tablet 1 Tab PO TID Thera Tablet (Multivitamin with Folic Acid) 400 Mcg Tablet 400 Mcg PO DAILY Protonix (Pantoprazole Sodium) 40 Mg Tablet.dr 1 Tab PO DAILY Ondansetron Hcl 4 Mg Tablet 1 Tab PO PRN Q8HRS PRN Miralax (Polyethylene Glycol 3350) 17 Gm Powd.pack 1 Packet PO DAILY Allergies Allergies: Coded Allergies: Iodinated Contrast Media (Verified Allergy, Severe, 09/15/20) ROS General: YES: Fatigue, Malaise PSYCHOLOGICAL ROS: No: Hallucinations, Hostility Eyes: No Eye Pain, No Itchy Eyes HEENT: No: Oral lesions, Sinus pain ALLERGY AND IMMUNOLOGY: No: Nasal Congestion, Post Nasal Drip Hematological and Lymphatic: No: Brusing, Night Sweats ENDOCRINE: No: Malaise/lethargy, Mood Swings Respiratory: YES: Shortness of breath Gastrointestinal: No Diarrhea, No Constipation Genitourinary: No Urgency, No Pain Musculoskeletal: No Gait Disturbance Neurological: No Behavorial Changes Skin: No Eczema Physical Exam General: Alert HEENT: Atraumatic Lungs: Clear to auscultation Heart: Regular rate, Normal S1, Normal S2 Abdomen: Soft, No masses Extremities: No clubbing Skin: No rashes Neuro: Normal speech Psych/Mental Status: Mental status NL MUSCULOSKELETAL: No swelling Vitals VITALS Vital Signs Date Time Temp Pulse Resp B/P (MAP) Pulse Ox O2 Delivery O2 Flow Rate FiO2 09/16/20 12:20 95 Nasal Cannula 2.0 09/16/20 11:00 98.4 70 18 102/59 (73) 98.4 Labs Labs Laboratory Tests Test 09/15/20 14:45 09/15/20 16:33 09/16/20 06:55 White Blood Count 3.0 x10^3/uL (4.0-11.0) 3.8 x10^3/uL (4.0-11.0) Red Blood Count 3.26 x10^6/uL (3.50-5.40) 3.46 x10^6/uL (3.50-5.40) Hemoglobin 8.8 g/dL (12.0-15.5) 9.2 g/dL (12.0-15.5) Hematocrit 26.4 % (36.0-47.0) 28.0 % (36.0-47.0) Mean Corpuscular Volume 81 fL (79-100) 81 fL (79-100) Mean Corpuscular Hemoglobin 27 pg (25-35) 27 pg (25-35) Mean Corpuscular Hemoglobin Concent 33 g/dL (31-37) 33 g/dL (31-37) Red Cell Distribution Width 17.6 % (11.5-14.5) 17.5 % (11.5-14.5) Platelet Count 29 x10^3/uL (140-400) 33 x10^3/uL (140-400) Neutrophils (%) (Auto) 75 % (31-73) 72 % (31-73) Lymphocytes (%) (Auto) 15 % (24-48) 19 % (24-48) Monocytes (%) (Auto) 9 % (0-9) 9 % (0-9) Eosinophils (%) (Auto) 0 % (0-3) 0 % (0-3) Basophils (%) (Auto) 1 % (0-3) 1 % (0-3) Neutrophils # (Auto) 2.2 x10^3/uL (1.8-7.7) 2.7 x10^3/uL (1.8-7.7) Lymphocytes # (Auto) 0.4 x10^3/uL (1.0-4.8) 0.7 x10^3/uL (1.0-4.8) Monocytes # (Auto) 0.3 x10^3/uL (0.0-1.1) 0.3 x10^3/uL (0.0-1.1) Eosinophils # (Auto) 0.0 x10^3/uL (0.0-0.7) 0.0 x10^3/uL (0.0-0.7) Basophils # (Auto) 0.0 x10^3/uL (0.0-0.2) 0.0 x10^3/uL (0.0-0.2) Platelet Estimate Decreased (ADEQUATE) Anisocytosis Slight Target Cells Few Sodium Level 135 mmol/L (136-145) 140 mmol/L (136-145) Potassium Level 3.8 mmol/L (3.5-5.1) 4.2 mmol/L (3.5-5.1) Chloride Level 101 mmol/L (98-107) 104 mmol/L (98-107) Carbon Dioxide Level 29 mmol/L (21-32) 31 mmol/L (21-32) Anion Gap 5 (6-14) 5 (6-14) Blood Urea Nitrogen 31 mg/dL (7-20) 27 mg/dL (7-20) Creatinine 0.9 mg/dL (0.6-1.0) 0.5 mg/dL (0.6-1.0) Estimated GFR (Cockcroft-Gault) 59.4 117.0 BUN/Creatinine Ratio 34 (6-20) 54 (6-20) Glucose Level 215 mg/dL (70-99) 126 mg/dL (70-99) Calcium Level 6.9 mg/dL (8.5-10.1) 7.5 mg/dL (8.5-10.1) Total Bilirubin 1.1 mg/dL (0.2-1.0) 1.1 mg/dL (0.2-1.0) Aspartate Amino Transf (AST/SGOT) 91 U/L (15-37) 108 U/L (15-37) Alanine Aminotransferase (ALT/SGPT) 25 U/L (14-59) 87 U/L (14-59) Alkaline Phosphatase 64 U/L (46-116) 68 U/L (46-116) Troponin I Quantitative < 0.017 ng/mL (0.000-0.055) Total Protein 4.3 g/dL (6.4-8.2) 4.4 g/dL (6.4-8.2) Albumin 1.8 g/dL (3.4-5.0) 1.7 g/dL (3.4-5.0) Albumin/Globulin Ratio 0.7 (1.0-1.7) 0.6 (1.0-1.7) Urine Collection Type U cath Urine Color Yellow Urine Clarity Clear Urine pH 5.5 (<5.0-8.0) Urine Specific [place] 1.015 (1.000-1.030) Urine Protein Negative mg/dL (NEG-TRACE) Urine Glucose (UA) Negative mg/dL (NEG) Urine Ketones (Stick) Negative mg/dL (NEG) Urine Blood Negative (NEG) Urine Nitrite Negative (NEG) Urine Bilirubin Negative (NEG) Urine Urobilinogen Dipstick 4.0 mg/dL (0.2 mg/dL) Urine Leukocyte Esterase Negative (NEG) Urine RBC 0 /HPF (0-2) Urine WBC 0 /HPF (0-4) Urine Squamous Epithelial Cells Few /LPF Urine Bacteria 0 /HPF (0-FEW) Urine Hyaline Casts Few /HPF Urine Mucus Mod /LPF Iron Level 23 ug/dL (50-170) Total Iron Binding Capacity 124 ug/dL (250-450) Iron Saturation 19 % (15-34) Laboratory Tests Test 09/15/20 14:45 09/15/20 16:33 09/16/20 06:55 White Blood Count 3.0 x10^3/uL (4.0-11.0) 3.8 x10^3/uL (4.0-11.0) Red Blood Count 3.26 x10^6/uL (3.50-5.40) 3.46 x10^6/uL (3.50-5.40) Hemoglobin 8.8 g/dL (12.0-15.5) 9.2 g/dL (12.0-15.5) Hematocrit 26.4 % (36.0-47.0) 28.0 % (36.0-47.0) Mean Corpuscular Volume 81 fL (79-100) 81 fL (79-100) Mean Corpuscular Hemoglobin 27 pg (25-35) 27 pg (25-35) Mean Corpuscular Hemoglobin Concent 33 g/dL (31-37) 33 g/dL (31-37) Red Cell Distribution Width 17.6 % (11.5-14.5) 17.5 % (11.5-14.5) Platelet Count 29 x10^3/uL (140-400) 33 x10^3/uL (140-400) Neutrophils (%) (Auto) 75 % (31-73) 72 % (31-73) Lymphocytes (%) (Auto) 15 % (24-48) 19 % (24-48) Monocytes (%) (Auto) 9 % (0-9) 9 % (0-9) Eosinophils (%) (Auto) 0 % (0-3) 0 % (0-3) Basophils (%) (Auto) 1 % (0-3) 1 % (0-3) Neutrophils # (Auto) 2.2 x10^3/uL (1.8-7.7) 2.7 x10^3/uL (1.8-7.7) Lymphocytes # (Auto) 0.4 x10^3/uL (1.0-4.8) 0.7 x10^3/uL (1.0-4.8) Monocytes # (Auto) 0.3 x10^3/uL (0.0-1.1) 0.3 x10^3/uL (0.0-1.1) Eosinophils # (Auto) 0.0 x10^3/uL (0.0-0.7) 0.0 x10^3/uL (0.0-0.7) Basophils # (Auto) 0.0 x10^3/uL (0.0-0.2) 0.0 x10^3/uL (0.0-0.2) Platelet Estimate Decreased (ADEQUATE) Anisocytosis Slight Target Cells Few Sodium Level 135 mmol/L (136-145) 140 mmol/L (136-145) Potassium Level 3.8 mmol/L (3.5-5.1) 4.2 mmol/L (3.5-5.1) Chloride Level 101 mmol/L (98-107) 104 mmol/L (98-107) Carbon Dioxide Level 29 mmol/L (21-32) 31 mmol/L (21-32) Anion Gap 5 (6-14) 5 (6-14) Blood Urea Nitrogen 31 mg/dL (7-20) 27 mg/dL (7-20) Creatinine 0.9 mg/dL (0.6-1.0) 0.5 mg/dL (0.6-1.0) Estimated GFR (Cockcroft-Gault) 59.4 117.0 BUN/Creatinine Ratio 34 (6-20) 54 (6-20) Glucose Level 215 mg/dL (70-99) 126 mg/dL (70-99) Calcium Level 6.9 mg/dL (8.5-10.1) 7.5 mg/dL (8.5-10.1) Total Bilirubin 1.1 mg/dL (0.2-1.0) 1.1 mg/dL (0.2-1.0) Aspartate Amino Transf (AST/SGOT) 91 U/L (15-37) 108 U/L (15-37) Alanine Aminotransferase (ALT/SGPT) 25 U/L (14-59) 87 U/L (14-59) Alkaline Phosphatase 64 U/L (46-116) 68 U/L (46-116) Troponin I Quantitative < 0.017 ng/mL (0.000-0.055) Total Protein 4.3 g/dL (6.4-8.2) 4.4 g/dL (6.4-8.2) Albumin 1.8 g/dL (3.4-5.0) 1.7 g/dL (3.4-5.0) Albumin/Globulin Ratio 0.7 (1.0-1.7) 0.6 (1.0-1.7) Urine Collection Type U cath Urine Color Yellow Urine Clarity Clear Urine pH 5.5 (<5.0-8.0) Urine Specific [place] 1.015 (1.000-1.030) Urine Protein Negative mg/dL (NEG-TRACE) Urine Glucose (UA) Negative mg/dL (NEG) Urine Ketones (Stick) Negative mg/dL (NEG) Urine Blood Negative (NEG) Urine Nitrite Negative (NEG) Urine Bilirubin Negative (NEG) Urine Urobilinogen Dipstick 4.0 mg/dL (0.2 mg/dL) Urine Leukocyte Esterase Negative (NEG) Urine RBC 0 /HPF (0-2) Urine WBC 0 /HPF (0-4) Urine Squamous Epithelial Cells Few /LPF Urine Bacteria 0 /HPF (0-FEW) Urine Hyaline Casts Few /HPF Urine Mucus Mod /LPF Iron Level 23 ug/dL (50-170) Total Iron Binding Capacity 124 ug/dL (250-450) Iron Saturation 19 % (15-34) Assessment/Plan Assessment/Plan Assessment: Pancytopenia Generalized weakness Failure to thrive Atrial fibrillation COPD Parkinson's History of spasmodic torticollis Recommendations: -Reviewed results of recently obtained evaluation for pancytopenia. She does not have B12 or folate deficiency, SPEP was normal, free light chains were mildly abnormal. -Given constitutional symptoms and new pancytopenia, recommend bone marrow biopsy for further evaluation of pancytopenia -Recommend ultrasound abdomen for evaluation of splenomegaly -Monitor CBC daily. Transfuse for hemoglobin less than 7 and for platelets less than 10. -Rest per Dr. John Ford MD Medical Oncology/Hematology Ph: [phone] GRAY FORD MD Sep 16, 2020 12:32
--- NOTE | 2020-09-16 12:49 | HP ---
ADMIT DATE: HISTORY AND PHYSICAL AND COMBINED DISCHARGE SUMMARY HISTORY OF PRESENT ILLNESS: This 85-year-old female who is a resident of a snf was noted to have some decrease in hemoglobin and increasing weakness. There is no evidence of any bleeding or fall. She was sent to the Emergency Room. In the Emergency Room, she was noted to have mild confusion. Because of the change in mental status, weakness, and possibility of a drop in hemoglobin, the patient was admitted for further evaluation and management. REVIEW OF SYSTEMS: At present time, the patient is at her baseline mental status. She does admit to some neck pain, which is chronic. She denies any abdominal pain, nausea, vomiting, diarrhea, any bleeding or fall. No new changes noted. Other systems reviewed and are negative. PAST MEDICAL HISTORY: The patient was last admitted here in 10/2019 for abnormal involuntary movements, parkinsonism, COPD, hypertension, anxiety, essential tremors, history of spasmodic torticollis, history of paroxysmal atrial fibrillation, chronic intermittent nausea, hyperlipidemia, diverticulosis, gastroesophageal reflux disease, history of esophageal stenosis with dilation, hypothyroidism, chronic kidney disease stage 3, depression, COPD, secondhand smoker and peripheral neuropathy. PAST SURGICAL HISTORY: The patient had a gastric polyp in 2008 that was benign. She has history of appendectomy; cataract removal; tonsillectomy; thyroidectomy; lumpectomy, benign; and had right femoral neck fracture with surgery. FAMILY HISTORY: History of esophageal cancer in the family. Mother had gastric cancer. Mother also had rheumatoid arthritis, volvulus, heart disease and stroke. SOCIAL HISTORY: The patient is a . [place]. No history of smoking, alcoholism or drug abuse. MEDICATIONS: Reviewed. The patient is on chronic narcotics for pain management. ALLERGIES: No known any. PHYSICAL EXAMINATION: GENERAL: The patient is an elderly female who is alert, awake, oriented and not in acute distress. VITAL SIGNS: Pulse 66 per minute, respirations 20 per minute, oxygen by nasal cannula 1 liter per minute, blood pressure 121/64 mmHg, temperature 97.6. HEENT: The patient is alert, oriented, not in acute distress. LUNGS: Decreased breath sounds at bases. CARDIOVASCULAR: S1, S2 regular. ABDOMEN: Soft, nontender, no guarding, no rigidity. Bowel sounds present. EXTREMITIES: No edema. CENTRAL NERVOUS SYSTEM: The patient has generalized weakness. She has chronic tremors with some involuntary movements. No acute changes noted. She has degenerative changes of multiple joints. LABORATORY FINDINGS: WBC count 3, repeat WBC count is 3.8; hemoglobin 8.8 yesterday, 9.2 today; platelet count was 29,000 yesterday and is 33,000 today. Sodium 140, potassium 4.2, BUN 27, creatinine 0.5, glucose 126, calcium 7.5, AST 108, ALT 87. Albumin 1.7. Urinalysis is negative. IMPRESSION: 1. Change in mental status, improving. 2. Thrombocytopenia. 3. Parkinsonism. 4. Generalized weakness. 5. Abnormal involuntary movements. 6. Chronic obstructive pulmonary disease. 7. Hypertension. 8. Anxiety. 9. Essential tremors. 10. Physical deconditioning. 11. History of spasmodic torticollis. 12. History of paroxysmal atrial fibrillation. 13. Chronic intermittent nausea. 14. Anemia. 15. Hyperlipidemia. 16. Diverticulosis. 17. Gastroesophageal reflux disease. 18. Gastritis. 19. History of esophageal stenosis with dilation 20. Hypothyroidism. 21. Chronic kidney disease stage 3. 22. Depression. 23. Peripheral neuropathy. PLAN: The patient has thrombocytopenia. We will consult Dr. Thapa for Hematology evaluation and management. If it is okay with him, consider discharging the patient soon. Her mental status is back to baseline. Her hemoglobin is stable. There is no evidence of bleeding. She is not on any anticoagulation due to her history of falls and multiple other problems. Her platelet count has decreased significantly. It was 212,000 in 10/2019 and then 96,000 in 08/2020 and now 33,000. Once the etiology and treatment of her thrombocytopenia are determined then we will discharge her back to snf. For details, please refer to the orders. CAROLEE DELANEY MD DR: NICOLE/koki JOB#: [id number] / [id number]
--- NOTE | 2020-09-16 13:15 | RAD ---
EXAMINATION: LIMITED ABDOMINAL ULTRASOUND CLINICAL HISTORY: Thrombocytopenia with concern for splenomegaly TECHNIQUE: Sonography of the spleen was performed. COMPARISON: None FINDINGS: Spleen at upper limits of normal in size, measuring 12.4 x 5.5 x 4.2 cm. Splenic parenchyma poorly ev aluated secondary to prominent adjacent bowel gas, however, there is no evidence of focal splenic les ion. IMPRESSION: Spleen at upper limits of normal in size. Electronically signed by: Hollis Felix DO (09/16/2020 1:12 PM) T[facility]
--- NOTE | 2020-09-16 14:20 | NUR ---
SALTY following for discharge planning. Spoke with RN and reviewed chart. SW consulted for high risk readmission. Pt from home with daughter Anajli. [facility] for Anjali ([phone]) to coordinate care per approval from patient. Pt currently on and states no home 02. Possible 6 min walk needed prior to discharge. Pt on oral medications, regular diet. Pt discharged with [facility] on last admission per chart review. Pt refusing HH on discharge. SALTY following. Addendum: 09/17/20 at 1201 by YAIMA POND Update: Pt resides in [place] [facility] and not at home with daughter.
[2020-09-16 15:00] VITALS: BP 120/64
[2020-09-16 19:00] VITALS: BP 99/42
[2020-09-16] MEDS ORDERED: MIRTAZAPINE 7.5 MG TABLET. PO SCH (21:00)
[2020-09-16 23:00] VITALS: BP 91/52
[2020-09-17 03:00] VITALS: BP 79/34
[2020-09-17] MEDS ORDERED: LEVOTHYROXINE 88 MCG TABLET PO SCH (06:00)
[2020-09-17 07:00] VITALS: BP 99/53
[2020-09-17] MEDS: PANTOPRAZOLE 40 MG TABLET.DR. PO SCH (07:51)
[2020-09-17] MEDS: HYDROcodone/APAP 10/325 1 TAB TABLET PO PRN ×2 (08:13→14:34)
[2020-09-17] MEDS: GABAPENTIN 300 MG CAPSULE. PO SCH ×2 (09:02→14:32)
[2020-09-17] MEDS: FOLIC ACID 1 MG TABLET. PO SCH (09:02)
[2020-09-17] MEDS: POLYETHYLENE GLYCOL 3350 17 GM PACKET. PO SCH (09:02)
[2020-09-17] MEDS: AMIODARONE HCL 200 MG TABLET. PO SCH (09:02)
[2020-09-17] MEDS: METOPROLOL SUCC 24HR ER 25 MG TAB.ER.24H. PO SCH (09:03)
[2020-09-17] MEDS: MORPHINE ER 30 MG TABLET.ER PO SCH (09:03)
[2020-09-17] MEDS: MULTIVITAMIN with MINERAL TABLET. PO SCH (09:03)
[2020-09-17] MEDS: CITALOPRAM 10 MG TABLET. PO SCH (09:03)
[2020-09-17] MEDS: FUROSEMIDE 20 MG TABLET PO SCH (09:03)
[2020-09-17 09:04] LABS: BASO % 1 % (0-3); EOS % 0 % (0-3); HEMATOCRIT 27.1 % (36.0-47.0); HEMOGLOBIN 8.9 g/dL (12.0-15.5); LYMPH # 0.6 x10^3/uL (1.0-4.8); LYMPH % 19 % (24-48); MEAN CORPUSCULAR HEMOGLOBIN 27 pg (25-35); MEAN CORPUSCULAR HGB CONC 33 g/dL (31-37); MEAN CORPUSCULAR VOLUME 82 fL (79-100); MONO # 0.2 x10^3/uL (0.0-1.1); MONO % 7 % (0-9); NEUT # 2.4 x10^3/uL (1.8-7.7); NEUT % 73 % (31-73); PLATELET COUNT 44 x10^3/uL (140-400); RED BLOOD COUNT 3.31 x10^6/uL (3.50-5.40); RED CELL DISTRIBUTION WIDTH 17.5 % (11.5-14.5); WHITE BLOOD COUNT 3.3 x10^3/uL (4.0-11.0)
[2020-09-17] MEDS: CARBIDOPA/LEVODOPA 25/100MG TABLET PO SCH ×2 (09:04→14:32)
[2020-09-17] MEDS: POTASSIUM CHLORIDE 10 MEQ TABLET.ER. PO SCH (09:04)
[2020-09-17 09:21] LABS: PROTHROMBIN TIME PATIENT 14.2 SEC (11.7-14.0)
--- NOTE | 2020-09-17 10:38 | PDOC3 ---
IM DISCHARGE SUMMARY Date of Admission Date of Admission Date of Admission: Sep 15, 2020 at 17:41 Date of Discharge Date of Discharge August 17, 2021 Primary Diagnosis Primary Diagnosis 1. Change in mental status, improving. 2. Thrombocytopenia. 3. Parkinsonism. 4. Generalized weakness. 5. Abnormal involuntary movements. 6. Chronic obstructive pulmonary disease. 7. Hypertension. 8. Anxiety. 9. Essential tremors. 10. Physical deconditioning. 11. History of spasmodic torticollis. 12. History of paroxysmal atrial fibrillation. 13. Chronic intermittent nausea. 14. Anemia. 15. Hyperlipidemia. 16. Diverticulosis. 17. Gastroesophageal reflux disease. 18. Gastritis. 19. History of esophageal stenosis with dilation 20. Hypothyroidism. 21. Chronic kidney disease stage 3. 22. Depression. 23. Peripheral neuropathy. Consults Consults Cecilia Bennett MD Labs Labs Laboratory Tests Test 09/16/20 18:12 09/17/20 08:20 SARS-CoV-2 Antigen (Rapid) Negative (NEGATIVE) White Blood Count 3.3 x10^3/uL (4.0-11.0) L Red Blood Count 3.31 x10^6/uL (3.50-5.40) L Hemoglobin 8.9 g/dL (12.0-15.5) L Hematocrit 27.1 % (36.0-47.0) L Mean Corpuscular Volume 82 fL (79-100) Mean Corpuscular Hemoglobin 27 pg (25-35) Mean Corpuscular Hemoglobin Concent 33 g/dL (31-37) Red Cell Distribution Width 17.5 % (11.5-14.5) H Platelet Count 44 x10^3/uL (140-400) L Neutrophils (%) (Auto) 73 % (31-73) Lymphocytes (%) (Auto) 19 % (24-48) L Monocytes (%) (Auto) 7 % (0-9) Eosinophils (%) (Auto) 0 % (0-3) Basophils (%) (Auto) 1 % (0-3) Neutrophils # (Auto) 2.4 x10^3/uL (1.8-7.7) Lymphocytes # (Auto) 0.6 x10^3/uL (1.0-4.8) L Monocytes # (Auto) 0.2 x10^3/uL (0.0-1.1) Eosinophils # (Auto) 0.0 x10^3/uL (0.0-0.7) Basophils # (Auto) 0.0 x10^3/uL (0.0-0.2) Prothrombin Time 14.2 SEC (11.7-14.0) H Prothrombin Time INR 1.1 (0.8-1.1) Activated Partial Thromboplast Time 26 SEC (24-38) Vitamin B12 Level 706 pg/mL (247-911) Laboratory Tests 09/17/20 08:20 Brief hospital course Brief hospital course This 85-year-old female who is a resident of a alf was noted to have some decrease in hemoglobin and increasing weakness. There is no evidence of any bleeding or fall. She was sent to the Emergency Room. In the Emergency Room, she was noted to have mild confusion. Because of the change in mental status, weakness, and possibility of a drop in hemoglobin, the patient was admitted for further evaluation and management. For more details regarding the past history, family history, social history, surgical history and other details, please refer to History and Physical. The patient has thrombocytopenia. We will consult Dr. Thapa for Hematology evaluation and management. If it is okay with him, consider discharging the patient soon. Her mental status is back to baseline. Her hemoglobin is stable. There is no evidence of bleeding. She is not on any anticoagulation due to her history of falls and multiple other problems. Her platelet count has decreased significantly. It was 212,000 in 10/2019 and then 96,000 in 08/2020 and now 33,000. Platelet count has increased to 44,000. Work-up done by the pattern designer in his office as well as here is negative so far. He recommended bone marrow biopsy but patient has declined. Condition, treatment and options discussed with the patient's daughter yesterday and today. Patient is losing weight and is not eating well. Encouraged her to eat more. Discharge her back to the alf and monitor CBC. Iron levels are low and this may be due to anemia of chronic disease. Patient's mental status is improving. Her long-term and short-term prognosis is poor. Discharge management 35 minutes. Medications Current Medications Medications (Trade) Dose Ordered Sig/Regan Route PRN Reason Start Time Stop Time Status Last Admin Dose Admin Levothyroxine Sodium (Synthroid) 88 mcg DAILY06 PO 1/7/21 06:00 09/17/20 07:51 Mirtazapine (Remeron) 7.5 mg QHS PO 09/16/20 21:00 09/16/20 21:17 Pantoprazole Sodium (Protonix) 40 mg DAILYAC PO 09/16/20 11:30 09/17/20 07:51 Medications reviewed and reconciled for discharge. Allergy Allergies Coded Allergies Type Severity Reaction Last Updated Verified Iodinated Contrast Media Allergy Severe 09/15/20 Yes Follow up in 5 days. DISPOSITION: [facility] Comments Discharge Management - 35 minutes. For other details please refer to discharge instructions Justicifation of Admission Dx: Justifications for Admission: Justification of Admission Dx: Comment: (Change in mental status, weakness, thrombocytopenia.) CAROLEE DELAENY MD Sep 17, 2020 10:38
[2020-09-17 11:00] VITALS: BP 97/46
--- NOTE | 2020-09-17 12:04 | NUR ---
SW following for discharge planning. Spoke with RN and reviewed chart. Pt titrated down to room air. Pt to discharge today, [facility]. Discharge orders phoned and faxed. Clinicals ready to be sent with pt. RN to call report. [facility] arranged for 1644 wc transport. No further SW needs at this time. Addendum: 09/17/20 at 1218 by YAIMA POND SW contacted by Ronnie at [facility] requesting SNU orders. RN to notify Dr. Lopez of this request. Addendum: 09/17/20 at 1407 by YAIMA POND Spoke with Tania from [facility] and SN[facility] orders not needed. Discharge plan remains back to [facility] today, 09/17 at 1649
[2020-09-17 15:00] VITALS: BP 100/52
--- NOTE | 2020-09-17 17:06 | NUR ---
Discharge Note: MARTÍNEZ OBRIEN IONE Discharge instructions and discharge home medications reviewed with Patient and a copy given. All questions have been answered and understanding verbalized. The following instructions and handouts were given: discharge instructions and report on visit given to KHADIJAH Junior at [facility]. Discontinued lines and drains: Peripheral IV discontinued intact. [facility] to [facility] with [facility] Personnel via Wheelchair
== END 2020-09-17 17:10 | disposition short-term general hospital (02) ==
LOC: ER 14:26 → ED HOLD 17:41 → 5 NORTH 22:04
PROVIDERS: ADMIT Internal Medicine; ATTEND Internal Medicine
DX: R41.82 Altered mental status, unspecified (principal); Z20.828 Contact with and (suspected) exposure to other viral communicable diseases; D69.6 Thrombocytopenia, unspecified; G20 Parkinson's disease; R53.1 Weakness; J44.9 Chronic obstructive pulmonary disease, unspecified; D61.818 Other pancytopenia; I12.9 Hypertensive chronic kidney disease with stage 1 through stage 4 chronic kidney disease, or unspecified chronic kidney disease; N18.30 Chronic kidney disease, stage 3 unspecified; R62.7 Adult failure to thrive; F41.9 Anxiety disorder, unspecified; G24.3 Spasmodic torticollis; I48.0 Paroxysmal atrial fibrillation; D64.9 Anemia, unspecified; E78.5 Hyperlipidemia, unspecified; E78.00 Pure hypercholesterolemia, unspecified; K57.90 Diverticulosis of intestine, part unspecified, without perforation or abscess without bleeding; K29.70 Gastritis, unspecified, without bleeding; E03.9 Hypothyroidism, unspecified; F32.9 Major depressive disorder, single episode, unspecified; G62.9 Polyneuropathy, unspecified; G25.0 Essential tremor; K21.9 Gastro-esophageal reflux disease without esophagitis; K64.9 Unspecified hemorrhoids; E86.0 Dehydration; Z85.828 Personal history of other malignant neoplasm of skin; Z90.49 Acquired absence of other specified parts of digestive tract; Z98.49 Cataract extraction status, unspecified eye; Z96.649 Presence of unspecified artificial hip joint; Z98.890 Other specified postprocedural states; Z79.899 Other long term (current) drug therapy; Z91.81 History of falling
CPT/HCPCS: 36415; 76705; 80053; 81001; 82607; 83540; 83550; 84484; 85025; 85610; 85730; 87426; 96360; 96361; 99285; G0378; J7030; U0003; G0379

== ENCOUNTER 2020-09-20 13:58 | Inpatient (IN) | payer MEDICARE ==
[~2020-09-20] VITALS: Ht 154.9 cm; Wt 48.6 kg
[~2020-09-20 13:58] MED LIST changes: +ALBU2.5V8 IH; +CEPH500T PO; +DILT240C2 PO; +ESCITALOPRAM OXA5 M1 PO; +IPRA4AER IH; +MIRT7.5T8 PO; +MORP30TA83 PO
[2020-09-20] MEDS ORDERED: ACETAMINOPHEN 500 MG TABLET PO ONE (14:30)
--- NOTE | 2020-09-20 14:50 | RAD ---
AP chest. HISTORY: Lightheaded AP view of the chest was compared with a study from one month ago. There is mild atelectasis or infil trate in the right midlung. There is marked elevation the left diaphragm. There is also a hiatus tashia ia behind the heart. There is atelectasis along the elevated diaphragm. IMPRESSION: 1. Mild atelectasis or infiltrate in the middle right lung. 2. Hiatus hernia an elevated left diaphragm without change from old studies. Electronically signed by: Preston Garland MD (09/20/2020 2:42 PM) [facility]
[2020-09-20 14:52] LABS: BASO % 1 % (0-3); EOS % 0 % (0-3); HEMATOCRIT 29.7 % (36.0-47.0); HEMOGLOBIN 9.7 g/dL (12.0-15.5); LYMPH # 0.6 x10^3/uL (1.0-4.8); LYMPH % 22 % (24-48); MEAN CORPUSCULAR HEMOGLOBIN 27 pg (25-35); MEAN CORPUSCULAR HGB CONC 33 g/dL (31-37); MEAN CORPUSCULAR VOLUME 81 fL (79-100); MONO # 0.3 x10^3/uL (0.0-1.1); MONO % 11 % (0-9); NEUT # 1.7 x10^3/uL (1.8-7.7); NEUT % 67 % (31-73); PLATELET COUNT 36 x10^3/uL (140-400); RED BLOOD COUNT 3.65 x10^6/uL (3.50-5.40); WHITE BLOOD COUNT 2.6 x10^3/uL (4.0-11.0)
--- NOTE | 2020-09-20 14:58 | PHYS DOC ---
Past Medical History Past Medical History: A-Fib, CHF, COPD, Depression, GERD, High Cholesterol, Hypertension, Hypothyroid, Renal Disease, Other Additional Past Medical Histor: dystonia, muscle weakness, torticollis, skin cancer (ANNELIESE DHALIWAL APRN) Past Surgical History: Appendectomy, Hip Replacement, Other Additional Past Surgical Histo: thyroid.cardiac cath (ANNELIESE DHALIWAL APRN) Smoking Status: Never Smoker Alcohol Use: None Drug Use: None (ANNELIESE DHALIWAL APRN) General Adult EDM: Chief Complaint: NEAR SYNCOPE HPI: HPI: Patient is a 85 year old female with history of A. fib, hypertension, CHF, COPD, high cholesterol, depression, kidney disease, who presents to the ED today stating she felt [place]. Patient denies any chest pain or shortness of breath though she is on oxygen 2 L chronically for COPD. She is not the best historian. (ANNELIESE DHALIWAL APRN) Review of Systems: Review of Systems: Constitutional: Denies fever or chills. [] Eyes: Denies change in visual acuity. [] HENT: Denies nasal congestion or sore throat. [] Respiratory: Denies cough or shortness of breath. [] Cardiovascular: Denies chest pain or edema. [] GI: Denies abdominal pain, nausea, vomiting, bloody stools or diarrhea. [] : Denies dysuria. [] Musculoskeletal: Denies back pain or joint pain. [] Integument: Denies rash. [] Neurologic: Reports near syncope episode. Denies headache, focal weakness or sensory changes. [] Psychiatric: Denies depression or anxiety. [] (ANNELIESE DHALIWAL APRN) Heart Score: Risk Factors: Risk Factors: DM, Current or recent (<one month) smoker, HTN, HLP, family history of CAD, obesity. Risk Scores: Score 0 - 3: 2.5% MACE over next 6 weeks - Discharge Home Score 4 - 6: 20.3% MACE over next 6 weeks - Admit for Clinical Observation Score 7 - 10: 72.7% MACE over next 6 weeks - Early Invasive Strategies (ANNELIESE DHALIWAL APRN) Current Medications: Current Medications Medications (Trade) Dose Ordered Sig/Regan Start Time Stop Time Status Last Admin Dose Admin Acetaminophen (Tylenol) 1,000 mg 1X ONCE 09/20/20 14:30 09/20/20 14:31 DC 09/20/20 14:42 1,000 MG (ANNELIESE DHALIWAL APRN) Allergies: Allergies: Allergies Coded Allergies Type Severity Reaction Last Updated Verified Iodinated Contrast Media Allergy Severe 09/15/20 Yes (ISRAANNELIESE HERNANDEZ) Physical Exam: PE: Constitutional: Well developed, well nourished, no acute distress, non-toxic appearance. [] HENT: Normocephalic, atraumatic, bilateral external ears normal, oropharynx dry, no oral exudates, nose normal. [] Eyes: PERRLA, EOMI, conjunctiva normal, no discharge. [] Neck: Normal range of motion, no tenderness, supple, no stridor. [] Cardiovascular:Heart rate regular rhythm, no murmur [] Lungs & Thorax: Coarse lung sounds Abdomen: Bowel sounds normal, soft, no tenderness, no masses, no pulsatile masses. [] Skin: Bruises/skin peeling noted on anterior schwab bilaterally. Warm, dry, no erythema, no rash. [] Back: No tenderness, no CVA tenderness. [] Extremities: No tenderness, no cyanosis, no clubbing, ROM intact, trace edema noted to bilateral lower extremities, Neurologic: Alert and oriented X 3, normal motor function, normal sensory function, no focal deficits noted. [] Psychologic: Affect normal, judgement normal, mood normal. [] (ANNELIESE DHALIWAL APRN) Current Patient Data: Vital Signs: Vital Signs Date Time Temp Pulse Resp B/P (MAP) Pulse Ox O2 Delivery O2 Flow Rate FiO2 09/20/20 14:12 101.0 96 28 110/72 (85) 96 Nasal Cannula 4.0 101.0 (ANNELIESE DHALIWAL CHEMICAL LAB SUPERVISOR) EKG: EK interpreted by Dr. Loo sinus rhythm heart rate 96 no STEMI. Artifact noted on the EKG. Patient is shaking. Running a fever [] (ANNELIESE DHALIWAL APRN) Radiology/Procedures: Radiology/Procedures: []PROCEDURE: CT HEAD WO CONTRAST CT head without contrast 09/20/2020. Reason for exam: Lightheadedness. Noncontrast images were performed. Exposure: One or more of the following individualized dose reduction techniques were utilized for this examination: 1. Automated exposure control 2. Adjustment of the mA and/or kV according to patient size 3. Use of iterative reconstruction technique. Comparison is made with a study of 10/30/2019. FINDINGS: There is no apparent intracranial mass, hemorrhage or abnormal extra- axial fluid collection. Diffuse low attenuation is again seen through the cerebral white matter, and appears unchanged. No new area of abnormal density is identified. The ventricles and basilar cisterns are normally positioned. The sinuses and mastoid air cells are clear. IMPRESSION: No apparent acute abnormality. Electronically signed by: Jordi Araujo Jr., MD (09/20/2020 3:14 PM) [id number] DICTATED and SIGNED BY: JORDI ARAUJO Jr, MD DATE: 09/20/20 [id number] PROCEDURE: PORTABLE CHEST 1V AP chest. HISTORY: Lightheaded AP view of the chest was compared with a study from one month ago. There is mild atelectasis or infiltrate in the right midlung. There is marked elevation the left diaphragm. There is also a hiatus hernia behind the heart. There is atelectasis along the elevated diaphragm. IMPRESSION: 1. Mild atelectasis or infiltrate in the middle right lung. 2. Hiatus hernia an elevated left diaphragm without change from old studies. Electronically signed by: Preston Garland MD (09/20/2020 2:42 PM) [facility] DICTATED and SIGNED BY: PRESTON GARLAND MD DATE: 09/20/20 [id number] 0 (ANNELIESE DHALIWAL APRN) Course & Med Decision Making: Course & Med Decision Making Pertinent Labs and Imaging studies reviewed. (See chart for details) This is a 85-year-old female patient presented [place] the ED today [place] the [place] complaining of near syncope episode that occurred this morning. Patient is febrile on arrival to the ED with temperature of 101.0. She is shaking. Heart rate 96, respiration 28, BP 110/92 Patient's oxygen had to be increased to 5 L because she started to desaturate at 4 L. She is currently satting 92 and above on 5 L. CBC with a WBC of 2.8, platelet count 236. CMP with bilirubin 1.8, AST 352, ALT 55. Urine positive for UTI CT of the head is negative Chest x-ray interpreted by radiologist was noted for possible right middle lobe pneumonia. Spoke to Dr. Luna who accepted patient for admission on behalf of Dr. Lopez. Patient was started on Zyvox and Zosyn per request of Dr. Luna. Routine consult placed for infectious disease and pulmonary. Rapid Covid test is negative, PCR Covid test pending (ANNELIESE DHALIWAL APRN) Dragon Disclaimer: Dragon Disclaimer: This electronic medical record was generated, in whole or in part, using a voice recognition dictation system. (ANNELIESE DHALIWAL APRN) Departure Departure Impression: Primary Impression: Near syncope Additional Impressions: Respiratory failure Qualified Codes: J96.01 - Acute respiratory failure with hypoxia Urinary tract infection Qualified Codes: N39.0 - Urinary tract infection, site not specified Fever Qualified Codes: R50.9 - Fever, unspecified Right middle lobe pneumonia Qualified Codes: J18.9 - Pneumonia, unspecified organism Person under investigation for COVID-19 Disposition: ADMITTED INPT THIS HOSP Condition: STABLE Referrals: CAROLEE LOPEZ MD (PCP) Attending Signature Attending Signature I have reviewed the PA/CORE ANALYSIS OPERATOR's note and plan of care. I was available for consultation as needed during the patient's visit in the emergency department. I agree with the clinical impression, plan, and disposition. (CORINE LOO DO) ANNELIESE DHALIWAL APRN Sep 20, 2020 14:58 CORINE LOO DO Sep 20, 2020 17:49
[2020-09-20 15:01] LABS: PROTHROMBIN TIME PATIENT 13.9 SEC (11.7-14.0)
[2020-09-20 15:03] LABS: CALCIUM 7.8 mg/dL (8.5-10.1); GFR 52.6; POTASSIUM 4.3 mmol/L (3.5-5.1)
[2020-09-20 15:04] LABS: BILIRUBIN,URINE SMALL (NEG); CLARITY,URINE CLEAR; NITRITE,URINE POSITIVE (NEG); PH,URINE 5.5 (<5.0-8.0); PROTEIN,URINE NEGATIVE (NEG-TRACE)
[2020-09-20 15:16] LABS: ALBUMIN/GLOBULIN RATIO 0.6 (1.0-1.7); CREATINE KINASE 45 U/L (26-192); MAGNESIUM 2.3 mg/dL (1.8-2.4); TOTAL BILIRUBIN 1.8 mg/dL (0.2-1.0); TOTAL PROTEIN 5.2 g/dL (6.4-8.2)
[2020-09-20 15:16] LABS: BARBITURATES NEG (NEG); BENZODIAZEPINES NEG (NEG); CANNABINOIDS NEG (NEG); COCAINE NEG (NEG); METHADONE NEG (NEG); OPIATES POS (NEG); PHENCYCLIDINE NEG (NEG)
[2020-09-20 15:17] LABS: AMPHETAMINE/METHAMPHETAMINE NEG (NEG)
--- NOTE | 2020-09-20 15:22 | RAD ---
CT head without contrast 09/20/2020. Reason for exam: Lightheadedness. Noncontrast images were performed. Exposure: One or more of the following individualized dose reducti on techniques were utilized for this examination: 1. Automated exposure control 2. Adjustment of th e mA and/or kV according to patient size 3. Use of iterative reconstruction technique. Comparison is made with a study of 10/30/2019. FINDINGS: There is no apparent intracranial mass, hemorrhage or abnormal extra-axial fluid collection . Diffuse low attenuation is again seen through the cerebral white matter, and appears unchanged. No new area of abnormal density is identified. The ventricles and basilar cisterns are normally position ed. The sinuses and mastoid air cells are clear. IMPRESSION: No apparent acute abnormality. Electronically signed by: Chandler Araujo Jr., MD (09/20/2020 3:14 PM) [id number]
[2020-09-20 15:25] LABS: PLT ESTIMATE DECREASED (ADEQUATE)
[2020-09-20 15:27] LABS: COLOR,URINE DK YELLOW; HYALINE CASTS, URINE FEW /HPF
[2020-09-20 15:28] LABS: BACTERIA,URINE MANY /HPF (0-FEW); RBC,URINE 0 /HPF (0-2); WBC,URINE RARE /HPF (0-4)
[2020-09-20] MEDS ORDERED: ONDANSETRON PF 4 MG/2 ML VIAL. IV PRN (16:30)
[2020-09-20] MEDS ORDERED: MORPHINE SULFATE 2 MG/ML VIAL. IV PRN (16:30)
[2020-09-20] MEDS ORDERED: DEXAMETHASONE SOD PHOS 20 MG/5 ML VIAL. IV ONE (17:00)
[2020-09-20] MEDS ORDERED: PIPERACILLIN/TAZOBACTAM 3.375 GM in IV NORMAL SALINE 50ML 50 ML IV ONE (17:00)
[2020-09-20] MEDS ORDERED: VANCOMYCIN 1.25 GM in IV NORMAL SALINE 500ML BAG 500 ML IV ONE (19:45)
[2020-09-20] MEDS ORDERED: HYDROcodone/APAP 10/325 1 TAB TABLET PO PRN (19:45)
--- NOTE | 2020-09-20 20:27 | NUR ---
Pt on floor. Pt alert to self. Spoke with patients daughter. See admission. PTs nurse told of skin assessment to be done and per chart and daughter ulcer. Daughter request patient to be a DNR.
[2020-09-20] MEDS ORDERED: C.DIFF MED SCREEN BY RX. MC SCH (20:30)
[2020-09-20] MEDS: CARBIDOPA/LEVODOPA 25/100MG TABLET PO SCH (23:01)
[2020-09-20] MEDS: GABAPENTIN 300 MG CAPSULE. PO SCH (23:01)
[2020-09-20] MEDS: MIRTAZAPINE 7.5 MG TABLET. PO SCH (23:01)
[2020-09-20] MEDS: MORPHINE ER 30 MG TABLET.ER PO SCH (23:01)
[2020-09-20 23:49] VITALS: BP 108/59
[2020-09-21] MEDS: VANCOMYCIN PER PHARMACY MC PRN ×2 (00:51→00:55)
--- NOTE | 2020-09-21 00:52 | NUR ---
Pharmacy Vancomycin Dosing Note S:Consulted to monitor and dose vancomycin started 09/21/20. O:HANG OBRIEN is a 85 year old F with Pneumonia UTI . Height: 5 feet, 1 inches Weight: 50.0 kg [place] Body Weight: 47.80 Adjusted Body Weight: 48.68 Dosing Weight: Actual Other Antibiotics: ZOSYN 3.375GM IV X1 IN ER (09/20) LABS: Last BUN: 34 Last Creatinine: 1.0 Creatinine Clearance: 31 mL/min Last WBC: 2.6 Last Procalcitonin: Tmax (past 24 hours): Microbiology: I/O: Drug Levels: Last level: on at Last dose given at Vancomycin Dosing: Loading Dose: 1250 mg x1 09/21/20 0020 Dosing Weight: Actual Target Trough: 15-20 A: Based on: Actual Wt and CrCl P: 1. 09/22/20 Vancomycin 750 mg IV q24h 2. Follow up Trough level on 09/23/20 at 0000 3. Pharmacy will continue to monitor, follow and adjust therapy as needed. LUIS ANTONIO ARECHIGA RPH, 09/21/20 0052 Signed: 09/21/20 at 0054 by LUIS ANTONIO ARECHIGA RPH PHA
[2020-09-21 01:24] LABS: ALBUMIN 1.7 g/dL (3.4-5.0); ALBUMIN/GLOBULIN RATIO 0.7 (1.0-1.7); CALCIUM 7.4 mg/dL (8.5-10.1); CREATININE 1.2 mg/dL (0.6-1.0); GFR 42.6; POTASSIUM 4.3 mmol/L (3.5-5.1); TOTAL BILIRUBIN 1.9 mg/dL (0.2-1.0); TOTAL PROTEIN 4.3 g/dL (6.4-8.2)
[2020-09-21 03:37] VITALS: BP 94/50
[2020-09-21 04:01] LABS: BASO % 1 % (0-3); EOS % 0 % (0-3); HEMATOCRIT 28.3 % (36.0-47.0); HEMOGLOBIN 9.3 g/dL (12.0-15.5); LYMPH # 0.5 x10^3/uL (1.0-4.8); LYMPH % 25 % (24-48); MEAN CORPUSCULAR HEMOGLOBIN 27 pg (25-35); MEAN CORPUSCULAR HGB CONC 33 g/dL (31-37); MEAN CORPUSCULAR VOLUME 82 fL (79-100); MONO # 0.2 x10^3/uL (0.0-1.1); MONO % 10 % (0-9); NEUT # 1.2 x10^3/uL (1.8-7.7); NEUT % 65 % (31-73); PLATELET COUNT 29 x10^3/uL (140-400); RED BLOOD COUNT 3.47 x10^6/uL (3.50-5.40); RED CELL DISTRIBUTION WIDTH 17.7 % (11.5-14.5)
[2020-09-21 04:14] LABS: WHITE BLOOD COUNT 1.8 x10^3/uL (4.0-11.0)
[2020-09-21] MEDS: LEVOTHYROXINE 88 MCG TABLET PO SCH (05:57)
[2020-09-21 07:00] VITALS: BP 107/57
[2020-09-21] MEDS ORDERED: PANTOPRAZOLE 40 MG TABLET.DR. PO SCH (07:30)
[2020-09-21] MEDS: CARBIDOPA/LEVODOPA 25/100MG TABLET PO SCH ×5 (09:00→21:10)
[2020-09-21] MEDS: POTASSIUM CHLORIDE 10 MEQ TABLET.ER. PO SCH ×2 (09:00→09:37)
[2020-09-21] MEDS: METOPROLOL SUCC 24HR ER 25 MG TAB.ER.24H. PO SCH ×2 (09:00→09:38)
[2020-09-21] MEDS: GABAPENTIN 300 MG CAPSULE. PO SCH ×5 (09:00→21:10)
[2020-09-21] MEDS: AMIODARONE HCL 200 MG TABLET. PO SCH ×2 (09:00→09:37)
[2020-09-21] MEDS: MORPHINE ER 30 MG TABLET.ER PO SCH ×3 (09:00→21:10)
[2020-09-21] MEDS ORDERED: FUROSEMIDE 20 MG TABLET PO SCH (09:00)
[2020-09-21] MEDS: POLYETHYLENE GLYCOL 3350 17 GM PACKET. PO SCH ×2 (09:00→09:36)
--- NOTE | 2020-09-21 09:02 | CONS ---
DATE OF CONSULTATION: 09/21/2020 PULMONARY CONSULTATION PRIMARY CARE PHYSICIAN: Renee Lopez MD REASON FOR CONSULTATION: Possible pneumonia. HISTORY OF PRESENT ILLNESS: The patient is an 85-year-old female who has history of CHF, atrial fibrillation, COPD, depression, GERD and multiple other chronic medical problems. She was brought into the hospital with complaint of some near syncope at a [facility]. The patient states she is not a smoker. She denies any cough. No chest pain, no shortness of breath. She is not the best historian. She is on oxygen 2 liters for COPD. Her chest x-ray was reviewed, it shows unchanged large left hiatal hernia. There was right hilar prominence, likely secondary to pulmonary hypertension. Cannot exclude some atelectasis. Consultation requested for further evaluation and management. Currently, she is requiring 5 liters of oxygen. PAST MEDICAL HISTORY: AFib, CHF, COPD, depression, GERD, dyslipidemia, hypertension, hypothyroidism, renal disease, dystonia, muscle weakness, torticollis, skin cancer. PAST SURGICAL HISTORY: Appendectomy, hip replacement and cardiac catheterization. ALLERGIES: IV DYE. MEDICATIONS: Reviewed as listed in the MRAD including antibiotics and amiodarone. REVIEW OF SYSTEMS: Reviewed. Unable to obtain much from the patient, but pertinent positives discussed in my history of present illness. PHYSICAL EXAMINATION: VITAL SIGNS: Reviewed. T-max of 101.0, blood pressure 94/50, pulse ox 97% on 5 liters. NECK: Supple. LUNGS: With few rhonchi anteriorly. CARDIOVASCULAR: With a regular rate. ABDOMEN: Soft. EXTREMITIES: With no pitting edema. LABORATORY DATA: Reviewed. White cell count was 2.6, now down to 1.8. Hemoglobin 9.3 and platelets are 29. COVID was negative. Opiates were positive. IMPRESSION: 1. Acute on chronic hypoxic respiratory failure secondary to clinically suspected pneumonia. 2. The patient with fever, leukopenia and abnormal breath sounds, suspect clinically pneumonia. SARS COVID-19 negative. 3. History of chronic obstructive pulmonary disease. 4. Abnormal chest x-ray with unchanged left hiatal hernia, which appears to be large, but unchanged and some right hilar prominence, likely secondary to pulmonary hypertension with associated atelectasis or infiltrate. 5. Abnormal procalcitonin. 6. Leukopenia, likely viral. 7. Thrombocytopenia, ? infectious RECOMMENDATIONS: 1. Continue present oxygen. We will keep saturation 94 and above. 2. Continue empiric antibiotics. 3. Continue amiodarone. 4. Noncontrast CT chest to better assess for pneumonia. 5. The patient is DNR. 6. Regular Lasix. 7. Stress ulcer prophylaxis. 8. We will review the CT chest and make further assessment. 9. Continue empiric antibiotics. 10. Monitor Platelets FERNANDO HALL MD DR: MARÍA/koki JOB#: [id number] / [id number] SHAVON
[2020-09-21] MEDS: ACETAMINOPHEN 325 MG TABLET. PO PRN ×2 (09:36→12:03)
[2020-09-21] MEDS: LACTOBACILLUS RHAMNOSUS GG 1 CAPSULE. PO SCH ×3 (10:00→21:10)
--- NOTE | 2020-09-21 10:49 | PDOC ---
Provider Note Date of Service: DATE: 09/21/20 TIME: 10:49 Provider Note H&P dictated #[id number] Detailed message left for patient's daughter Anjali. Justifications for Admission Other Justification CAROLEE DELANEY MD Sep 21, 2020 10:49
[2020-09-21 11:00] VITALS: BP 141/103
--- NOTE | 2020-09-21 11:04 | HP ---
ADMIT DATE: 09/20/2020 HISTORY OF PRESENT ILLNESS: This 85-year-old female who is a resident of [facility] and who was recently admitted here a week ago for change in mental status and thrombocytopenia, [facility] after the initial workup was negative. She declined bone marrow biopsy at that time. The patient was sent back to the Emergency Room yesterday because of the patient feeling like she was going to pass out. She has a history of atrial fibrillation, COPD, congestive heart failure and neuropathy with tremors and cervical dystonia and is on oxygen by nasal cannula 2 liters per minute. In the Emergency Room, CT scan of head was negative for any acute abnormalities. Chest x-ray showed mild atelectasis or infiltrate in the middle, right lung. Urinalysis shows nitrite positive, but few wbc's. She had fever of 101.1 degrees Fahrenheit. WBC count was 2.6 yesterday and 1.8 today, hemoglobin 9.7, platelet count of 36,000 yesterday and 29,000 today and previously a platelet count ranged from 29,000 to 33,000. Her rapid COVID-19 antigen test was negative. BUN 34, creatinine 1. Sodium 137, potassium 4.3, glucose 146, AST 352, ALT 55, total bilirubin 1.8, albumin 2. Because of the fever, leukopenia and pancytopenia and pneumonia as well as possibility of UTI, the patient was admitted for further evaluation and management. REVIEW OF SYSTEMS: At present time, the patient is sleepy, but she does wake up, but she is confused and she does admit to some pain, but unable to converse well because of her confusion. She denies any abdominal pain or dyspnea. She is requiring oxygen by nasal cannula and [facility], she requires 2 liters per minute. Unable to do full systems review. PAST MEDICAL HISTORY: She has a history of parkinsonism, abnormal involuntary movement, COPD, hypertension, anxiety, essential tremors, spasmodic torticollis, paroxysmal atrial fibrillation, chronic intermittent nausea, hyperlipidemia, diverticulosis, GERD, history of esophageal stenosis with dilation, hypothyroidism, CKD 3, depression, COPD, secondhand smoker and peripheral neuropathy. PAST SURGICAL HISTORY: Includes gastric polyp in 2009 that was benign; history of appendectomy; cataract removal; tonsillectomy; thyroidectomy; lumpectomy, benign; and had right femoral neck fracture with surgery. FAMILY HISTORY: Positive for esophageal cancer. Mother had gastric cancer, rheumatoid arthritis, volvulus, heart disease and stroke. SOCIAL HISTORY: The patient is a . She lives in [facility]. No history of smoking, alcoholism or drug abuse. MEDICATIONS: Reviewed. The patient is on chronic narcotics for pain management. ALLERGIES: None known any. PHYSICAL EXAMINATION: GENERAL: The patient is an elderly female who appears to be very sleepy, pale, hard to wake up, confused, does respond verbally and hard of hearing. VITAL SIGNS: Temperature max 101.1, pulse 98 per minute, respirations 17 per minute, blood pressure 107/57 mmHg. The patient is on oxygen by nasal cannula. She is in [id number]-vbmbhgya distress. EYES: Partial exam unremarkable. Conjunctivae pale. HENT: Partial exam. NECK: Decreased range of motion. JVP normal. THROAT: Not examined. LUNGS: Occasional coarse bilateral breath sounds. CARDIOVASCULAR: S1, S2, irregular. ABDOMEN: Soft, nontender, bowel sounds present. EXTREMITIES: No edema. CENTRAL NERVOUS SYSTEM: Generalized weakness, tremors and involuntary movements present, forgetful, very weak. LABORATORY FINDINGS: As noted earlier. IMPRESSION: 1. Pneumonia. 2. Pancytopenia. 3. Urinary tract infection. 4. Acute metabolic encephalopathy. 5. Acute on chronic hypoxic respiratory failure. 6. Physical deconditioning. 7. Cervical dystonia. 8. Parkinsonism. 9. Abnormal involuntary movements. 10. Chronic obstructive pulmonary disease. 11. Essential tremors. 12. Physical deconditioning. 13. Chronic intermittent nausea. 14. History of paroxysmal atrial fibrillation. 15. Anemia. 16. Hyperlipidemia. 17. Diverticulosis. 18. Gastroesophageal reflux disease. 19. Chronic kidney disease, stage 3. 20. Depression. 21. Peripheral neuropathy. PLAN: I had asked the staff to call the daughter and because the patient had previously refused a bone marrow biopsy, we will hold off on bone marrow biopsy. I will hold Lasix. The patient is not able to take any of her oral medications at this time because of her mental status. I will start her on IV fluids. Discussed with Dr. Malu Biswas for Infectious Disease evaluation and management. The patient was started on Zosyn yesterday and vancomycin. Cefepime has been started. The patient was given IV steroid x 1 yesterday. She has leukopenia, but this could be due to myelodysplasia. Her rapid COVID test is negative. COVID-19 PCR is pending. Prognosis of this patient is extremely poor. I will discuss with the patient's daughter, Anjali, on phone. She has been made a DNR. For details, please refer to the orders. CAROLEE DELANEY MD DR: NICOLE/koki JOB#: [id number] / [id number]
--- NOTE | 2020-09-21 11:44 | CONS ---
DATE OF CONSULTATION: 09/21/2020 REFERRING PHYSICIAN: . REASON FOR CONSULTATION: PUI, possible pneumonia. HISTORY OF PRESENT ILLNESS: An 85-year-old female [facility] resident with history of AFib; hypertension; CHF; COPD, on 2 liters O2 by nasal cannula, chronically; hyperlipidemia; depression; CKD, presented to the ER after she felt like passing out earlier at the [facility]. The patient is currently on 5 liters of O2, febrile at 101, not a good historian. History obtained from chart and medical staff. The patient was febrile in the ER at 101 with her blood pressure at 110/72. CT head showed no acute abnormality. Chest x-ray showed mild atelectasis or infiltrate in the middle, right lung, hiatal hernia and elevated left diaphragm without change from old studies. The patient's white count was 2.8, platelets of 236, bilirubin of 1.8, AST of 352, ALT of 55. UA showed rare wbc's. The patient received a dose of vancomycin and Zosyn. Currently is on vancomycin. Rapid SARS COVID was negative. Creatinine was 1.0, repeat was 1.2 with a BUN of 37, hemoglobin is 9.3. Repeat WBC is 1.8 with platelets of 29. ID consultation has been requested for antibiotic management. Today, the patient remains lethargic, febrile at 101. PAST MEDICAL HISTORY: AFib, CHF, COPD on 2 liters O2 by nasal cannula, depression, GERD, dyslipidemia, hypertension, hypothyroidism, kidney disease, dystonia, muscle weakness, torticollis, history of skin cancer. PAST SURGICAL HISTORY: Appendectomy, hip replacement, cardiac catheterization. ALLERGIES: IV DYE. CURRENT MEDICATION: IV vancomycin status post one dose of Zosyn. Other medications reviewed in medication list. REVIEW OF SYSTEMS: Unable to obtain. PHYSICAL EXAMINATION: VITAL SIGNS: Temperature 101, pulse 98, respiratory rate 17, blood pressure 107/57, oxygen saturation 96% on 5 liters O2 by nasal cannula. GENERAL: Weak-appearing female, lying in bed, answers very few questions, lethargic. HEENT: Normocephalic, atraumatic. Oral mucosa dry. I did not open the mouth to do the full exam. NECK: Supple. LUNGS: Scattered rhonchi present. HEART: S1, S2, no murmurs. ABDOMEN: Soft, nontender, bowel sounds present. EXTREMITIES: No edema. DERMATOLOGY: Numerous abrasions present in the lower extremity, does not appear infected. LABORATORY DATA: WBC 1.8, hemoglobin 9.3, hematocrit 28.3, platelets 29. Sodium 138, potassium 4.3, chloride 101, bicarbonate 31, BUN 37, creatinine 1.2, glucose 215. Lactate 1.4, calcium 7.4, bilirubin 1.9, AST 271, alkaline phosphatase 99, AST 45. Troponin normal. Albumin 1.7. Procalcitonin 0.24. UA shows rare wbc's, leukocyte esterase negative, nitrite positive. Toxicology: Urine opiate screen positive. Serology: Rapid SARS COVID negative. DIAGNOSTICS: Chest x-ray shows mild atelectasis or infiltrate in the middle, right lung, hiatal hernia and elevated left diaphragm without change from old studies. CT head shows no acute abnormality. IMPRESSION: 1. Fever. 2. Acute hypoxic respiratory failure, likely secondary from suspected pneumonia. 3. Right lung infiltrate. 4. Large unchanged hiatal hernia with elevated diaphragm. 5. Thrombocytopenia and anemia.Chronic 6. Hyperbilirubinemia. 7. History of atrial fibrillation, on amiodarone. 8. Abnormal liver function tests. 9. Generalized weakness. 10. Chronic obstructive pulmonary disease, on chronic O2, 2 liters by nasal cannula at [facility]. 11. Chronic kidney disease. 12. COVID, patient under investigation. RECOMMENDATIONS: 1. Continue IV vancomycin. Monitor renal functions closely. Pharmacy to adjust dose of vancomycin depending on renal function and vancomycin trough. 2. Start cefepime, renal dosing. 3. Monitor labs and cultures. 4. Follow up COVID PCR. 5. Maintain aspiration precaution. 6. Follow noncontrast CT chest,Pulmonary team following 7. Critically ill. 8. Prognosis is poor. 9. Continue supportive care. 10. Hematology consulted Discussed with RN. Thank you for allowing me to participate in this patient's care. If you have any questions, do not hesitate to contact me. BISMARK VASQUEZ MD DR: BARBARA/koki JOB#: [id number] / [id number] SHAVON
[2020-09-21] MEDS: CEFEPIME HCL IV Push 1 GM VIAL. IVP SCH (12:03)
[2020-09-21] MEDS: POTASSIUM CHLORIDE 20 MEQ in IV DEXTROSE 5 %-0.45 % NACL 1,000 ML IV SCH (12:04)
--- NOTE | 2020-09-21 14:45 | NUR ---
Wound/Ostomy Care Wound Type/Assessment: patient seen per wound care consult. see wound assessment. patient has multiple scabbed/ scratches to bilateral lower legs. patient also has a stage 3 with DTI to the coccyx/left buttock and DTI pressure ulcer to the right lower buttock. Treatment Recommendations/Plan: Recommendations to the bilateral lower leg- apply lotion daily, and the coccyx/left buttock and right lower buttock- A & D ointment. patient incontinent of urine at this time, erin-care done and brief changed. patient wanted brief on. Offloading surface/device: patient transferred to a P500 bed at this time, patient turned to the right side with a wedge and heels placed in an off-loading position with pillows. Discharge Recommendations for dressings: Recommendations of continuing with the Recommended plan and wound care will f/u on Monday09/23/2020. Notified KHADIJAH Blackwood about the POC.
[2020-09-21 15:00] VITALS: BP 104/53
--- NOTE | 2020-09-21 17:35 | NUR ---
SW following for discharge planning. SW spoke with RN and reviewed chart. Pt currently on 5l 02, cardiac diet, COVID negative. WBC 1.8. Discharge plan is return to [facility] when stable. SW following.
--- NOTE | 2020-09-21 18:10 | RAD ---
EXAM: CT CHEST WITHOUT CONTRAST HISTORY: Right hilar mass COMPARISON: CT chest 07/30/2015. Chest radiograph 09/20/2020 TECHNIQUE: Helical CT of the chest performed without contrast. Coronal and sagittal reformats were o btained. One or more of the following individualized dose reduction techniques were utilized for this examinat ion: 1. Automated exposure control 2. Adjustment of the mA and/or kV according to patient size 3. Use of iterative reconstruction technique. FINDINGS: Thyroid gland and thoracic inlet: Left thyroid lobe is nonvisualized. Heart and great vessels: Heart is normal in size. There is rightward cardiomediastinal shift due to m arkedly elevated left hemidiaphragm, unchanged from 2015. The thoracic aorta is normal in caliber. Mediastinum and sandra: No mediastinal or hilar lymphadenopathy. Moderate hiatal hernia. Lungs and pleura: There are patchy opacities throughout both lungs, greatest in the lower lobes. Calc ified granuloma in the right upper lobe. There is mild compressive atelectasis in the left lower lobe . No pleural effusion. Chest wall and axillae: No axillary lymphadenopathy. Upper abdomen: The visualized portion of the upper abdomen is unremarkable. Bones: A moderate T11 compression fracture and mild T12 compression fracture have slightly worsened f rom 2015. No acute fracture. IMPRESSION: 1. Bilateral pulmonary opacities suspicious for multifocal pneumonia, likely viral/atypical etiology . 2. Unchanged marked elevation of the left hemidiaphragm. 3. Moderate hiatal hernia. 4. Slightly worsened old T11 and T12 compression fractures. Electronically signed by: Carmen Espinoza MD (09/21/2020 6:07 PM) [id number]
[2020-09-21] MEDS: MIRTAZAPINE 7.5 MG TABLET. PO SCH ×2 (21:01→21:10)
[2020-09-21] MEDS: FAMOTIDINE 20 MG TABLET. PO SCH ×2 (21:01→21:10)
[2020-09-21] MEDS: VITS A & D/LANOLIN TOPICAL OINTMENT 42GM TUBE. TP SCH (21:02)
[2020-09-21 21:31] VITALS: BP 99/64
--- NOTE | 2020-09-21 22:15 | NUR ---
Pt refusing all HS meds this shift. Informed pt that most meds could be crushed and mixed with applesauce for easier swallowing, but pt still declined. Reports no pain at this time. Will continue with plan of care.
[2020-09-21 23:00] VITALS: BP 128/96
[2020-09-22] MEDS: METOPROLOL IV PUSH 5 MG/5 ML VIAL. IVP PRN ×3 (00:23→10:32)
[2020-09-22] MEDS: POTASSIUM CHLORIDE 20 MEQ in IV DEXTROSE 5 %-0.45 % NACL 1,000 ML IV SCH (00:30)
[2020-09-22] MEDS ORDERED: VANCOMYCIN 750 MG in IV NORMAL SALINE 250ML 250 ML IV SCH (00:30)
[2020-09-22 03:25] VITALS: BP 106/69
[2020-09-22] MEDS: LEVOTHYROXINE 88 MCG TABLET PO SCH (06:27)
[2020-09-22 07:19] VITALS: BP 110/60
[2020-09-22] MEDS: METOPROLOL SUCC 24HR ER 25 MG TAB.ER.24H. PO SCH (09:00)
[2020-09-22] MEDS: AMIODARONE HCL 200 MG TABLET. PO SCH (09:00)
[2020-09-22] MEDS: POLYETHYLENE GLYCOL 3350 17 GM PACKET. PO SCH (09:00)
[2020-09-22] MEDS: GABAPENTIN 300 MG CAPSULE. PO SCH ×3 (09:00→20:12)
[2020-09-22] MEDS: LACTOBACILLUS RHAMNOSUS GG 1 CAPSULE. PO SCH ×2 (09:00→20:11)
[2020-09-22] MEDS: POTASSIUM CHLORIDE 10 MEQ TABLET.ER. PO SCH (09:00)
[2020-09-22] MEDS: VITS A & D/LANOLIN TOPICAL OINTMENT 42GM TUBE. TP SCH ×3 (09:00→20:24)
[2020-09-22] MEDS: CARBIDOPA/LEVODOPA 25/100MG TABLET PO SCH ×3 (09:00→20:12)
[2020-09-22] MEDS: MORPHINE ER 30 MG TABLET.ER PO SCH ×2 (09:00→20:24)
--- NOTE | 2020-09-22 09:20 | PDOC ---
PULMONARY PROGRESS NOTES DATE: 09/22/20 TIME: 09:17 Subjective Pt. remains on 4 liters N/C fever overnight no other concerns Vitals Vital Signs Date Time Temp Pulse Resp B/P (MAP) Pulse Ox O2 Delivery O2 Flow Rate FiO2 09/22/20 07:19 101.8 105 24 110/60 (77) 90 Nasal Cannula 5.0 101.8 General: Alert, Confused Lungs: Clear Cardiovascular: S1, S2 Abdomen: Soft Extremities: No Edema Labs Laboratory Tests Test 09/20/20 14:28 09/20/20 14:30 09/20/20 14:50 09/20/20 16:50 Coronavirus (PCR) Not detected (Not Detected) SARS-CoV-2 Antigen (Rapid) Negative (NEGATIVE) White Blood Count 2.6 x10^3/uL (4.0-11.0) Red Blood Count 3.65 x10^6/uL (3.50-5.40) Hemoglobin 9.7 g/dL (12.0-15.5) Hematocrit 29.7 % (36.0-47.0) Mean Corpuscular Volume 81 fL (79-100) Mean Corpuscular Hemoglobin 27 pg (25-35) Mean Corpuscular Hemoglobin Concent 33 g/dL (31-37) Red Cell Distribution Width 17.0 % (11.5-14.5) Platelet Count 36 x10^3/uL (140-400) Neutrophils (%) (Auto) 67 % (31-73) Lymphocytes (%) (Auto) 22 % (24-48) Monocytes (%) (Auto) 11 % (0-9) Eosinophils (%) (Auto) 0 % (0-3) Basophils (%) (Auto) 1 % (0-3) Neutrophils # (Auto) 1.7 x10^3/uL (1.8-7.7) Lymphocytes # (Auto) 0.6 x10^3/uL (1.0-4.8) Monocytes # (Auto) 0.3 x10^3/uL (0.0-1.1) Eosinophils # (Auto) 0.0 x10^3/uL (0.0-0.7) Basophils # (Auto) 0.0 x10^3/uL (0.0-0.2) Platelet Estimate Decreased (ADEQUATE) Prothrombin Time 13.9 SEC (11.7-14.0) Prothromb Time International Ratio 1.1 (0.8-1.1) Activated Partial Thromboplast Time 27 SEC (24-38) Sodium Level 137 mmol/L (136-145) Potassium Level 4.3 mmol/L (3.5-5.1) Chloride Level 102 mmol/L (98-107) Carbon Dioxide Level 34 mmol/L (21-32) Anion Gap 1 (6-14) Blood Urea Nitrogen 34 mg/dL (7-20) Creatinine 1.0 mg/dL (0.6-1.0) Estimated GFR (Cockcroft-Gault) 52.6 BUN/Creatinine Ratio 34 (6-20) Glucose Level 146 mg/dL (70-99) Lactic Acid Level 1.4 mmol/L (0.4-2.0) Calcium Level 7.8 mg/dL (8.5-10.1) Magnesium Level 2.3 mg/dL (1.8-2.4) Total Bilirubin 1.8 mg/dL (0.2-1.0) Aspartate Amino Transf (AST/SGOT) 352 U/L (15-37) Alanine Aminotransferase (ALT/SGPT) 55 U/L (14-59) Alkaline Phosphatase 107 U/L (46-116) Creatine Kinase 45 U/L (26-192) Creatine Kinase MB (Mass) 2.0 ng/mL (0.0-3.6) Creatine Kinase MB Relative Index % (0-4) Troponin I Quantitative < 0.017 ng/mL (0.000-0.055) < 0.017 ng/mL (0.000-0.055) YQ-Fjx-M-Type Natriuretic Peptide 433 pg/mL (0-449) Total Protein 5.2 g/dL (6.4-8.2) Albumin 2.0 g/dL (3.4-5.0) Albumin/Globulin Ratio 0.6 (1.0-1.7) Procalcitonin 0.24 ng/mL (0.00-0.10) Thyroid Stimulating Hormone (TSH) 0.851 uIU/mL (0.358-3.74) Urine Collection Type U cath Urine Color Dk yellow Urine Clarity Clear Urine pH 5.5 (<5.0-8.0) Urine Specific [place] 1.020 (1.000-1.030) Urine Protein Negative mg/dL (NEG-TRACE) Urine Glucose (UA) Negative mg/dL (NEG) Urine Ketones (Stick) Negative mg/dL (NEG) Urine Blood Negative (NEG) Urine Nitrite Positive (NEG) Urine Bilirubin Small (NEG) Urine Urobilinogen Dipstick 4.0 mg/dL (0.2 mg/dL) Urine Leukocyte Esterase Negative (NEG) Urine RBC 0 /HPF (0-2) Urine WBC Rare /HPF (0-4) Urine Squamous Epithelial Cells None /LPF Urine Bacteria Many /HPF (0-FEW) Urine Hyaline Casts Few /HPF Urine Mucus Slight /LPF Urine Opiates Screen Pos (NEG) Urine Methadone Screen Neg (NEG) Urine Barbiturates Neg (NEG) Urine Phencyclidine Screen Neg (NEG) Urine Amphetamine/Methamphetamine Neg (NEG) Urine Benzodiazepines Screen Neg (NEG) Urine Cocaine Screen Neg (NEG) Urine Cannabinoids Screen Neg (NEG) Urine Ethyl Alcohol Neg (NEG) Test 09/21/20 00:45 White Blood Count 1.8 x10^3/uL (4.0-11.0) Red Blood Count 3.47 x10^6/uL (3.50-5.40) Hemoglobin 9.3 g/dL (12.0-15.5) Hematocrit 28.3 % (36.0-47.0) Mean Corpuscular Volume 82 fL (79-100) Mean Corpuscular Hemoglobin 27 pg (25-35) Mean Corpuscular Hemoglobin Concent 33 g/dL (31-37) Red Cell Distribution Width 17.7 % (11.5-14.5) Platelet Count 29 x10^3/uL (140-400) Neutrophils (%) (Auto) 65 % (31-73) Lymphocytes (%) (Auto) 25 % (24-48) Monocytes (%) (Auto) 10 % (0-9) Eosinophils (%) (Auto) 0 % (0-3) Basophils (%) (Auto) 1 % (0-3) Neutrophils # (Auto) 1.2 x10^3/uL (1.8-7.7) Lymphocytes # (Auto) 0.5 x10^3/uL (1.0-4.8) Monocytes # (Auto) 0.2 x10^3/uL (0.0-1.1) Eosinophils # (Auto) 0.0 x10^3/uL (0.0-0.7) Basophils # (Auto) 0.0 x10^3/uL (0.0-0.2) Sodium Level 138 mmol/L (136-145) Potassium Level 4.3 mmol/L (3.5-5.1) Chloride Level 103 mmol/L (98-107) Carbon Dioxide Level 31 mmol/L (21-32) Anion Gap 4 (6-14) Blood Urea Nitrogen 37 mg/dL (7-20) Creatinine 1.2 mg/dL (0.6-1.0) Estimated GFR (Cockcroft-Gault) 42.6 BUN/Creatinine Ratio 31 (6-20) Glucose Level 215 mg/dL (70-99) Calcium Level 7.4 mg/dL (8.5-10.1) Total Bilirubin 1.9 mg/dL (0.2-1.0) Aspartate Amino Transf (AST/SGOT) 271 U/L (15-37) Alanine Aminotransferase (ALT/SGPT) 45 U/L (14-59) Alkaline Phosphatase 90 U/L (46-116) Troponin I Quantitative < 0.017 ng/mL (0.000-0.055) Total Protein 4.3 g/dL (6.4-8.2) Albumin 1.7 g/dL (3.4-5.0) Albumin/Globulin Ratio 0.7 (1.0-1.7) Medications Active Scripts Medications Dose Route/Sig Max Daily Dose Days Date Category Dose Instructions Proair Hfa (Albuterol Sulfate) 8.5 Gm Hfa.aer.ad 2 Puff IH PRN Q4-6HRS PRN 21 09/16/20 Reported Diltiazem 24HR Cd (Diltiazem Hcl) 120 Mg Cap.er.24h 120 Mg PO DAILY 09/16/20 Reported Ms Contin (Morphine Sulfate) 30 Mg Tablet.er 30 Mg PO BID 09/16/20 Reported Mirtazapine 7.5 Mg Tablet 7.5 Mg PO QHS 09/16/20 Reported Combivent Respimat Inhal (Ipratropium/Albuterol Sulfate) 4 Gm Aer.w.adap 2 Inh IH QID 09/16/20 Reported Furosemide 20 Mg Tablet 20 Mg PO DAILY 09/16/20 Reported hold if sbp<100 Escitalopram Oxalate 5 Mg Tablet 5 Mg PO DAILY 09/16/20 Reported Klor-Con 10 (Potassium Chloride) 10 Meq Tablet.er 10 Meq PO DAILY 09/16/20 Reported Metoprolol Succinate ( Xl ) (Metoprolol Succinate) 25 Mg Tab.er.24h 12.5 Mg PO DAILY 09/16/20 Reported Gabapentin 300 Mg Capsule 300 Mg PO TID 30 11/04/19 Rx Synthroid (Levothyroxine Sodium) 88 Mcg Tablet 88 Mcg PO DAILY06 11/04/19 Rx Amiodarone Hcl 200 Mg Tablet 200 Mg PO DAILY 30 11/04/19 Rx Sinemet 25-100 Mg Tablet (Carbidopa/Levodopa) 1 Each Tablet 1 Tab PO TID 09/09/18 Reported Thera Tablet (Multivitamin with Folic Acid) 400 Mcg Tablet 400 Mcg PO DAILY 02/24/17 Reported Protonix (Pantoprazole Sodium) 40 Mg Tablet.dr 1 Tab PO DAILY 02/24/17 Reported Ondansetron Hcl 4 Mg Tablet 1 Tab PO PRN Q8HRS PRN 02/24/17 Reported Miralax (Polyethylene Glycol 3350) 17 Gm Powd.pack 1 Packet PO DAILY 02/24/17 Reported Hydrocodone-Apap 10-325 (Hydrocodone Bit/Acetaminophen) 1 Each Tablet 1 Tab PO PRN Q6HRS PRN 01/12/[address] chest IMPRESSION: 1. Bilateral pulmonary opacities suspicious for multifocal pneumonia, likely viral/atypical etiology. 2. Unchanged marked elevation of the left hemidiaphragm. 3. Moderate hiatal hernia. 4. Slightly worsened old T11 and T12 compression fractures. Impression . IMPRESSION: 1. Acute on chronic hypoxic respiratory failure secondary to pneumonia. 2. The patient with fever, leukopenia and abnormal breath sounds, suspect pneumonia. SARS COVID-19 negative. cannot exclude aspiration 3. History of chronic obstructive pulmonary disease. 4. Abnormal chest x-ray with unchanged left hiatal hernia, which appears to be large, but unchanged and some right hilar prominence, likely secondary to pulmonary hypertension with associated atelectasis or infiltrate. 5. Abnormal procalcitonin. 6. Leukopenia, likely viral. 7. Thrombocytopenia, ? infectious Plan . Continue Supplemental oxygen to keep sats above 92%, on 4 liters N/C Continue ABX per ID on cefepime and vanco, high grade fevers, need to r/o Influenza Follow Cultures NGTD CT chest reviewed---Bilateral pneumonia COVID-19 (-), will repeat Lasix as needed DVT/GI PPX D/W RN Pt. is a DNR FERNANDO HALL MD Sep 22, 2020 09:20
--- NOTE | 2020-09-22 09:41 | PDOC ---
IM PROGRESS NOTES- Subjective Subjective Patient is a poor historian. No complaints of pain or dyspnea. Objective Vitals/I&O Vital Signs Date Time Temp Pulse Resp B/P (MAP) Pulse Ox O2 Delivery O2 Flow Rate FiO2 09/22/20 07:19 101.8 105 24 110/60 (77) 90 Nasal Cannula 5.0 101.8 I & O 09/21/20 09/21/20 09/22/20 15:00 23:00 07:00 Intake Total 0 ml 0 ml Balance 0 ml 0 ml Physical Exam Physical Exam GENERAL: The patient is an elderly female who appears to be very sleepy, pale, hard to wake up, confused, does respond verbally and hard of hearing. The patient is on oxygen by nasal cannula. She is in loih-yy-[id number] distress. EYES: Partial exam unremarkable. Conjunctivae pale. HENT: Partial exam. NECK: Decreased range of motion. JVP normal. THROAT: Not examined. LUNGS: Occasional coarse bilateral breath sounds. CARDIOVASCULAR: S1, S2, irregular. ABDOMEN: Soft, nontender, bowel sounds present. EXTREMITIES: No edema. CENTRAL NERVOUS SYSTEM: Generalized weakness, tremors and involuntary movements present, forgetful, very weak. Meds Current Medications Medications (Trade) Dose Ordered Sig/Regan Route PRN Reason Start Time Stop Time Status Last Admin Dose Admin Vancomycin HCl 750 mg/Sodium Chloride 250 ml @ 250 mls/hr Q24H IV 09/22/20 00:30 09/22/20 00:23 Cefepime HCl (Maxipime) 1 gm DAILY IVP 09/21/20 10:30 09/21/20 12:03 Potassium Chloride 20 meq/ Dextrose/Sodium Chloride 1,010 ml @ 75 mls/hr [id number] IV 09/21/20 12:00 09/22/20 00:30 Vitamin A/Vitamin D (Vitamin A & D Ointment) 1 brittney TID TP 09/21/20 21:00 09/21/20 21:02 Metoprolol Tartrate (Lopressor Vial) 5 mg PRN Q6HRS PRN IVP TACHYCARDIA 09/22/20 00:15 09/22/20 06:38 Assessment Assessment 1. Pneumonia. 2. Pancytopenia. 3. Urinary tract infection. 4. Acute metabolic encephalopathy. 5. Acute on chronic hypoxic respiratory failure. 6. Physical deconditioning. 7. Cervical dystonia. 8. Parkinsonism. 9. Abnormal involuntary movements. 10. Chronic obstructive pulmonary disease. 11. Essential tremors. 12. Physical deconditioning. 13. Chronic intermittent nausea. 14. History of paroxysmal atrial fibrillation. 15. Anemia. 16. Hyperlipidemia. 17. Diverticulosis. 18. Gastroesophageal reflux disease. 19. Chronic kidney disease, stage 3. 20. Depression. 21. Peripheral neuropathy. PLAN: I had asked the staff to call the daughter and because the patient had previously refused a bone marrow biopsy, we will hold off on bone marrow biopsy. I will hold Lasix. The patient is not able to take any of her oral medications at this time because of her mental status. I will start her on IV fluids. Discussed with Dr. Malu Biswas for Infectious Disease evaluation and management. The patient was started on Zosyn yesterday and vancomycin. Cefepime has been started. The patient was given IV steroid x 1 yesterday. She has leukopenia, but this could be due to myelodysplasia. Her rapid COVID test is negative. . Acute respiratory failure-continue oxygen by nasal cannula. Pneumonia- COVID-19 PCR is negative On IV cefepime and vancomycin. CT chest September 21, 2020 IMPRESSION: 1. Bilateral pulmonary opacities suspicious for multifocal pneumonia, likely viral/atypical etiology. 2. Unchanged marked elevation of the left hemidiaphragm. 3. Moderate hiatal hernia. 4. Slightly worsened old T11 and T12 compression fractures. Discussed with Dr. Bull. Repeat COVID-19 PCR test. Order influenza screen. Possible aspiration order speech therapy evaluation and treatment. Patient is refusing to take her medications and eat and drink. Continue IV fluids. Prognosis of this patient is extremely poor. Detailed message about the patient's condition and treatment left for patient's daughter Anjali on phone yesterday and today. She has been made a DNR. For details, please refer to the orders. Plan Plan For more details regarding further plans, please refer to the orders. Justifications for Admission Other Justification CAROLEE DELANEY MD Sep 22, 2020 09:41
[2020-09-22 09:48] LABS: BASO % 0 % (0-3); EOS % 0 % (0-3); HEMATOCRIT 26.7 % (36.0-47.0); HEMOGLOBIN 8.8 g/dL (12.0-15.5); LYMPH # 0.6 x10^3/uL (1.0-4.8); LYMPH % 22 % (24-48); MEAN CORPUSCULAR HEMOGLOBIN 27 pg (25-35); MEAN CORPUSCULAR HGB CONC 33 g/dL (31-37); MEAN CORPUSCULAR VOLUME 81 fL (79-100); MONO # 0.3 x10^3/uL (0.0-1.1); MONO % 10 % (0-9); NEUT # 1.8 x10^3/uL (1.8-7.7); NEUT % 68 % (31-73); PLATELET COUNT 35 x10^3/uL (140-400); RED CELL DISTRIBUTION WIDTH 17.6 % (11.5-14.5); WHITE BLOOD COUNT 2.7 x10^3/uL (4.0-11.0)
[2020-09-22 09:58] LABS: ALBUMIN 1.4 g/dL (3.4-5.0); ALBUMIN/GLOBULIN RATIO 0.5 (1.0-1.7); CALCIUM 7.8 mg/dL (8.5-10.1); GFR 52.6; POTASSIUM 4.3 mmol/L (3.5-5.1); TOTAL BILIRUBIN 1.7 mg/dL (0.2-1.0); TOTAL PROTEIN 4.2 g/dL (6.4-8.2)
[2020-09-22] MEDS: CEFEPIME HCL IV Push 1 GM VIAL. IVP SCH (10:00)
[2020-09-22 10:43] LABS: INFLUENZA A PATIENT NEGATIVE (NEGATIVE); INFLUENZA B PATIENT NEGATIVE (NEGATIVE)
[2020-09-22] MEDS: VANCOMYCIN PER PHARMACY MC PRN (11:11)
[2020-09-22 11:12] VITALS: BP 137/71
--- NOTE | 2020-09-22 11:51 | PDOC2 ---
CONSULT Date of Consult Date of Consult DATE: 09/22/20 TIME: 11:47 Reason for Consult Reason for Consult: Pancytopenia Referring Physician Referring Physician: Dr. Lopez Identification/Chief Complaint Chief Complaint Generalized weakness and shortness of breath Source Source: Chart review, Patient History of Present Illness Reason for Visit: Mine is a 85-year-old female who has been admitted to the hospital for further evaluation management of generalized weakness. She was seen in my office earlier this week for new onset thrombocytopenia. [facility] [place] [facility] [place] [facility]. She has recently developed generalized weakness. She denies associated fever or chills or night sweats. She has lost weight over the past few months. Her most recent CBC shows a new onset thrombocytopenia as well as progressive anemia and leukopenia. Additional evaluation was initiated in the office and a follow-up visit was arranged for her. She was brought to the emergency room due to worsening generalized weakness. Hematology consultation was sought at a prior visit due to thrombocytopenia. I recommended a bone marrow biopsy and patient left AMA prior to that. She has been readmitted with generalized weakness and new onset pancytopenia. Hematology consultation has been sought again due to pancytopenia. She has also been diagnosed with community-acquired pneumonia and pulmonology consultation has been sought. Past Medical History Cardiovascular: AFIB, HTN, Hyperlipidemia, Other Pulmonary: COPD CENTRAL NERVOUS SYSTEM: Seizure, Other GI: Diverticulosis, GERD, Hemorrhoids, Other Musculoskeletal: Other Renal/: Chronic renal insuff Endocrine: Hypothyroidism Past Surgical History Past Surgical History: Appendectomy, Cataract Removal, Tonsillectomy, Other Family History Family History: Cancer, Heart Disease, Stroke, Other Social History ALCOHOL: none Drugs: None Current Problem List Problem List Problems Medical Problems: (1) Fever Status: Acute (2) Near syncope Status: Acute (3) Person under investigation for COVID-19 Status: Acute (4) Respiratory failure Status: Acute (5) Right middle lobe pneumonia Status: Acute (6) Urinary tract infection Status: Acute Current Medications Current Medications Current Medications Acetaminophen (Tylenol) 1,000 mg 1X ONCE PO Last administered on 09/20/20at 14:42; Start 09/20/20 at 14:30; Stop 09/20/20 at 14:31; Status DC Ondansetron HCl (Zofran) 4 mg PRN Q8HRS PRN IV NAUSEA/VOMITING; Start 09/20/20 at 16:30; Stop 09/21/20 at 16:29; Status DC Morphine Sulfate (Morphine Sulfate) 2 mg PRN Q2HR PRN IV PAIN; Start 09/20/20 at 16:30; Stop 09/21/20 at 16:29; Status DC Acetaminophen (Tylenol) 650 mg PRN Q4HRS PRN PO FEVER > 100.3'F Last administered on 09/21/20at 12:03; Start 09/20/20 at 16:30; Stop 09/21/20 at 16:29; Status DC Dexamethasone Sodium Phosphate (Decadron) 10 mg 1X ONCE IV Last administered on 09/20/20at 16:54; Start 09/20/20 at 17:00; Stop 09/20/20 at 17:01; Status DC Piperacillin Sod/ Tazobactam Sod 3.375 gm/Sodium Chloride 50 ml @ 100 mls/hr 1X ONCE IV Last administered on 09/20/20at 16:57; Start 09/20/20 at 17:00; Stop 09/20/20 at 17:29; Status DC Linezolid/Dextrose 300 ml @ 300 mls/hr Q12HR IV ; Start 09/20/20 at 21:00; Stop 09/20/20 at 19:49; Status DC Amiodarone HCl (Cordarone) 200 mg DAILY PO ; Start 09/21/20 at 09:00 Carbidopa/Levodopa (Sinemet 25/100) 1 tab TID PO Last administered on 09/21/20at 14:43; Start 09/20/20 at 21:00 Diltiazem HCl (Cardizem 24hr Cd) 120 mg DAILY PO ; Start 09/21/20 at 09:00 Furosemide (Lasix) 20 mg DAILY PO Last administered on 09/21/20at 09:38; Start 09/21/20 at 09:00; Stop 09/21/20 at 10:09; Status DC Gabapentin (Neurontin) 300 mg TID PO Last administered on 09/21/20at 14:43; Start 09/20/20 at 21:00 Acetaminophen/ Hydrocodone Bitart (Lortab 10/325) 1 tab PRN Q6HRS PRN PO MODERATE, SEVERE PAIN; Start 09/20/20 at 19:45 Levothyroxine Sodium (Synthroid) 88 mcg DAILY06 PO Last administered on 09/21/20at 05:57; Start 09/21/20 at 06:00 Metoprolol Succinate (Toprol Xl) 12.5 mg DAILY PO ; Start 09/21/20 at 09:00 Mirtazapine (Remeron) 7.5 mg QHS PO Last administered on 09/20/20at 23:01; Start 09/20/20 at 21:00 Morphine Sulfate (Ms Contin) 30 mg BID PO Last administered on 09/20/20at 23:01; Start 09/20/20 at 21:00 Pantoprazole Sodium (Protonix) 40 mg DAILYAC PO ; Start 09/21/20 at 07:30; Stop 09/21/20 at 09:34; Status DC Polyethylene Glycol (miraLAX PACKET) 17 gm DAILY PO ; Start 09/21/20 at 09:00 Potassium Chloride (Klor-Con) 10 meq DAILY PO ; Start 09/21/20 at 09:00 Vancomycin HCl 1.25 gm/Sodium Chloride 500 ml @ 250 mls/hr 1X ONCE IV Last administered on 09/21/20at 00:20; Start 09/20/20 at 19:45; Stop 09/20/20 at 21:44; Status DC Vancomycin HCl (Vanco Per Pharmacy) 1 each PRN DAILY PRN MC SEE COMMENTS Last administered on 09/22/20at 11:11; Start 09/20/20 at 19:45 Pharmacy Consult (C.diff Med Screen By Rx) 1 each 1X MC ; Start 09/20/20 at 20:30; Status Cancel Vancomycin HCl 750 mg/Sodium Chloride 250 ml @ 250 mls/hr Q24H IV Last administered on 09/22/20at 00:23; Start 09/22/20 at 00:30 Vancomycin HCl (Vancomycin Trough Level) 1 each 1X ONCE MC ; Start 09/23/20 at 00:00; Stop 09/23/20 at 00:01 Famotidine (Pepcid) 20 mg QHS PO ; Start 09/21/20 at 21:00 Lactobacillus Rhamnosus (Culturelle) 1 cap BID PO ; Start 09/21/20 at 10:00 Cefepime HCl (Maxipime) 1 gm DAILY IVP Last administered on 09/22/20at 10:00; Start 09/21/20 at 10:30 Potassium Chloride 20 meq/ Dextrose/Sodium Chloride 1,010 ml @ 75 mls/hr [id number] IV Last administered on 09/22/20at 00:30; Start 09/21/20 at 12:00 Vitamin A/Vitamin D (Vitamin A & D Ointment) 1 brittney TID TP Last administered on 09/22/20at 09:00; Start 09/21/20 at 21:00 Lorazepam (Ativan Inj) 0.25 mg 1X ONCE IVP ; Start 09/22/20 at 00:15; Stop 09/22/20 at 00:16; Status DC Metoprolol Tartrate (Lopressor Vial) 5 mg PRN Q6HRS PRN IVP TACHYCARDIA Last administered on 09/22/20at 10:32; Start 09/22/20 at 00:15 Active Scripts Active Gabapentin 300 Mg Capsule 300 Mg PO TID 30 Days Synthroid (Levothyroxine Sodium) 88 Mcg Tablet 88 Mcg PO DAILY06 30 Days Amiodarone Hcl 200 Mg Tablet 200 Mg PO DAILY 30 Days Hydrocodone-Apap 10-325 (Hydrocodone Bit/Acetaminophen) 1 Each Tablet 1 Tab PO PRN Q6HRS PRN Reported Proair Hfa (Albuterol Sulfate) 8.5 Gm Hfa.aer.ad 2 Puff IH PRN Q4-6HRS PRN 21 Days Diltiazem 24HR Cd (Diltiazem Hcl) 120 Mg Cap.er.24h 120 Mg PO DAILY Ms Contin (Morphine Sulfate) 30 Mg Tablet.er 30 Mg PO BID Mirtazapine 7.5 Mg Tablet 7.5 Mg PO QHS Combivent Respimat Inhal (Ipratropium/Albuterol Sulfate) 4 Gm Aer.w.adap 2 Inh IH QID Furosemide 20 Mg Tablet 20 Mg PO DAILY hold if sbp<100 Escitalopram Oxalate 5 Mg Tablet 5 Mg PO DAILY Klor-Con 10 (Potassium Chloride) 10 Meq Tablet.er 10 Meq PO DAILY Metoprolol Succinate ( Xl ) (Metoprolol Succinate) 25 Mg Tab.er.24h 12.5 Mg PO DAILY Sinemet 25-100 Mg Tablet (Carbidopa/Levodopa) 1 Each Tablet 1 Tab PO TID Thera Tablet (Multivitamin with Folic Acid) 400 Mcg Tablet 400 Mcg PO DAILY Protonix (Pantoprazole Sodium) 40 Mg Tablet.dr 1 Tab PO DAILY Ondansetron Hcl 4 Mg Tablet 1 Tab PO PRN Q8HRS PRN Miralax (Polyethylene Glycol 3350) 17 Gm Powd.pack 1 Packet PO DAILY Allergies Allergies: Coded Allergies: Iodinated Contrast Media (Verified Allergy, Severe, 09/15/20) ROS General: YES: Fatigue, Malaise PSYCHOLOGICAL ROS: No: Irritablity Eyes: No Eye Pain, No Itchy Eyes HEENT: No: Oral lesions, Sinus pain Hematological and Lymphatic: No: Brusing, Night Sweats ENDOCRINE: YES: Malaise/lethargy Respiratory: YES: Cough, Shortness of breath Cardiovascular: No Chest Pain Gastrointestinal: No Nausea, No Vomiting Genitourinary: No Dysuria, No Flank Pain Musculoskeletal: No Joint Pain Neurological: No Behavorial Changes Skin: No Eczema Physical Exam General: Alert, Oriented X3 HEENT: Atraumatic Lungs: Clear to auscultation Heart: Regular rate, Normal S1, Normal S2 Abdomen: Normal bowel sounds, Soft Extremities: No clubbing Skin: No rashes Neuro: Normal speech Psych/Mental Status: Mental status NL MUSCULOSKELETAL: No swelling Vitals VITALS Vital Signs Date Time Temp Pulse Resp B/P (MAP) Pulse Ox O2 Delivery O2 Flow Rate FiO2 09/22/20 10:32 141 09/22/20 09:00 110/60 09/22/20 08:00 Nasal Cannula 5.0 09/22/20 07:19 101.8 24 90 101.8 Labs Labs Laboratory Tests Test 09/20/20 14:28 09/20/20 14:30 09/20/20 14:50 09/20/20 16:50 Coronavirus (PCR) Not detected (Not Detected) SARS-CoV-2 Antigen (Rapid) Negative (NEGATIVE) White Blood Count 2.6 x10^3/uL (4.0-11.0) Red Blood Count 3.65 x10^6/uL (3.50-5.40) Hemoglobin 9.7 g/dL (12.0-15.5) Hematocrit 29.7 % (36.0-47.0) Mean Corpuscular Volume 81 fL (79-100) Mean Corpuscular Hemoglobin 27 pg (25-35) Mean Corpuscular Hemoglobin Concent 33 g/dL (31-37) Red Cell Distribution Width 17.0 % (11.5-14.5) Platelet Count 36 x10^3/uL (140-400) Neutrophils (%) (Auto) 67 % (31-73) Lymphocytes (%) (Auto) 22 % (24-48) Monocytes (%) (Auto) 11 % (0-9) Eosinophils (%) (Auto) 0 % (0-3) Basophils (%) (Auto) 1 % (0-3) Neutrophils # (Auto) 1.7 x10^3/uL (1.8-7.7) Lymphocytes # (Auto) 0.6 x10^3/uL (1.0-4.8) Monocytes # (Auto) 0.3 x10^3/uL (0.0-1.1) Eosinophils # (Auto) 0.0 x10^3/uL (0.0-0.7) Basophils # (Auto) 0.0 x10^3/uL (0.0-0.2) Platelet Estimate Decreased (ADEQUATE) Prothrombin Time 13.9 SEC (11.7-14.0) Prothromb Time International Ratio 1.1 (0.8-1.1) Activated Partial Thromboplast Time 27 SEC (24-38) Sodium Level 137 mmol/L (136-145) Potassium Level 4.3 mmol/L (3.5-5.1) Chloride Level 102 mmol/L (98-107) Carbon Dioxide Level 34 mmol/L (21-32) Anion Gap 1 (6-14) Blood Urea Nitrogen 34 mg/dL (7-20) Creatinine 1.0 mg/dL (0.6-1.0) Estimated GFR (Cockcroft-Gault) 52.6 BUN/Creatinine Ratio 34 (6-20) Glucose Level 146 mg/dL (70-99) Lactic Acid Level 1.4 mmol/L (0.4-2.0) Calcium Level 7.8 mg/dL (8.5-10.1) Magnesium Level 2.3 mg/dL (1.8-2.4) Total Bilirubin 1.8 mg/dL (0.2-1.0) Aspartate Amino Transf (AST/SGOT) 352 U/L (15-37) Alanine Aminotransferase (ALT/SGPT) 55 U/L (14-59) Alkaline Phosphatase 107 U/L (46-116) Creatine Kinase 45 U/L (26-192) Creatine Kinase MB (Mass) 2.0 ng/mL (0.0-3.6) Creatine Kinase MB Relative Index % (0-4) Troponin I Quantitative < 0.017 ng/mL (0.000-0.055) < 0.017 ng/mL (0.000-0.055) UT-Oqi-A-Type Natriuretic Peptide 433 pg/mL (0-449) Total Protein 5.2 g/dL (6.4-8.2) Albumin 2.0 g/dL (3.4-5.0) Albumin/Globulin Ratio 0.6 (1.0-1.7) Procalcitonin 0.24 ng/mL (0.00-0.10) Thyroid Stimulating Hormone (TSH) 0.851 uIU/mL (0.358-3.74) Urine Collection Type U cath Urine Color Dk yellow Urine Clarity Clear Urine pH 5.5 (<5.0-8.0) Urine Specific Barker 1.020 (1.000-1.030) Urine Protein Negative mg/dL (NEG-TRACE) Urine Glucose (UA) Negative mg/dL (NEG) Urine Ketones (Stick) Negative mg/dL (NEG) Urine Blood Negative (NEG) Urine Nitrite Positive (NEG) Urine Bilirubin Small (NEG) Urine Urobilinogen Dipstick 4.0 mg/dL (0.2 mg/dL) Urine Leukocyte Esterase Negative (NEG) Urine RBC 0 /HPF (0-2) Urine WBC Rare /HPF (0-4) Urine Squamous Epithelial Cells None /LPF Urine Bacteria Many /HPF (0-FEW) Urine Hyaline Casts Few /HPF Urine Mucus Slight /LPF Urine Opiates Screen Pos (NEG) Urine Methadone Screen Neg (NEG) Urine Barbiturates Neg (NEG) Urine Phencyclidine Screen Neg (NEG) Urine Amphetamine/Methamphetamine Neg (NEG) Urine Benzodiazepines Screen Neg (NEG) Urine Cocaine Screen Neg (NEG) Urine Cannabinoids Screen Neg (NEG) Urine Ethyl Alcohol Neg (NEG) Test 09/21/20 00:45 09/22/20 08:45 09/22/20 10:00 White Blood Count 1.8 x10^3/uL (4.0-11.0) 2.7 x10^3/uL (4.0-11.0) Red Blood Count 3.47 x10^6/uL (3.50-5.40) 3.30 x10^6/uL (3.50-5.40) Hemoglobin 9.3 g/dL (12.0-15.5) 8.8 g/dL (12.0-15.5) Hematocrit 28.3 % (36.0-47.0) 26.7 % (36.0-47.0) Mean Corpuscular Volume 82 fL (79-100) 81 fL (79-100) Mean Corpuscular Hemoglobin 27 pg (25-35) 27 pg (25-35) Mean Corpuscular Hemoglobin Concent 33 g/dL (31-37) 33 g/dL (31-37) Red Cell Distribution Width 17.7 % (11.5-14.5) 17.6 % (11.5-14.5) Platelet Count 29 x10^3/uL (140-400) 35 x10^3/uL (140-400) Neutrophils (%) (Auto) 65 % (31-73) 68 % (31-73) Lymphocytes (%) (Auto) 25 % (24-48) 22 % (24-48) Monocytes (%) (Auto) 10 % (0-9) 10 % (0-9) Eosinophils (%) (Auto) 0 % (0-3) 0 % (0-3) Basophils (%) (Auto) 1 % (0-3) 0 % (0-3) Neutrophils # (Auto) 1.2 x10^3/uL (1.8-7.7) 1.8 x10^3/uL (1.8-7.7) Lymphocytes # (Auto) 0.5 x10^3/uL (1.0-4.8) 0.6 x10^3/uL (1.0-4.8) Monocytes # (Auto) 0.2 x10^3/uL (0.0-1.1) 0.3 x10^3/uL (0.0-1.1) Eosinophils # (Auto) 0.0 x10^3/uL (0.0-0.7) 0.0 x10^3/uL (0.0-0.7) Basophils # (Auto) 0.0 x10^3/uL (0.0-0.2) 0.0 x10^3/uL (0.0-0.2) Sodium Level 138 mmol/L (136-145) 149 mmol/L (136-145) Potassium Level 4.3 mmol/L (3.5-5.1) 4.3 mmol/L (3.5-5.1) Chloride Level 103 mmol/L (98-107) 112 mmol/L (98-107) Carbon Dioxide Level 31 mmol/L (21-32) 32 mmol/L (21-32) Anion Gap 4 (6-14) 5 (6-14) Blood Urea Nitrogen 37 mg/dL (7-20) 36 mg/dL (7-20) Creatinine 1.2 mg/dL (0.6-1.0) 1.0 mg/dL (0.6-1.0) Estimated GFR (Cockcroft-Gault) 42.6 52.6 BUN/Creatinine Ratio 31 (6-20) 36 (6-20) Glucose Level 215 mg/dL (70-99) 132 mg/dL (70-99) Calcium Level 7.4 mg/dL (8.5-10.1) 7.8 mg/dL (8.5-10.1) Total Bilirubin 1.9 mg/dL (0.2-1.0) 1.7 mg/dL (0.2-1.0) Aspartate Amino Transf (AST/SGOT) 271 U/L (15-37) 129 U/L (15-37) Alanine Aminotransferase (ALT/SGPT) 45 U/L (14-59) 197 U/L (14-59) Alkaline Phosphatase 90 U/L (46-116) 81 U/L (46-116) Troponin I Quantitative < 0.017 ng/mL (0.000-0.055) Total Protein 4.3 g/dL (6.4-8.2) 4.2 g/dL (6.4-8.2) Albumin 1.7 g/dL (3.4-5.0) 1.4 g/dL (3.4-5.0) Albumin/Globulin Ratio 0.7 (1.0-1.7) 0.5 (1.0-1.7) Influenza Type A Antigen Negative (NEGATIVE) Influenza Type B Antigen Negative (NEGATIVE) Laboratory Tests Test 09/22/20 08:45 1/12/21 10:00 White Blood Count 2.7 x10^3/uL (4.0-11.0) Red Blood Count 3.30 x10^6/uL (3.50-5.40) Hemoglobin 8.8 g/dL (12.0-15.5) Hematocrit 26.7 % (36.0-47.0) Mean Corpuscular Volume 81 fL (79-100) Mean Corpuscular Hemoglobin 27 pg (25-35) Mean Corpuscular Hemoglobin Concent 33 g/dL (31-37) Red Cell Distribution Width 17.6 % (11.5-14.5) Platelet Count 35 x10^3/uL (140-400) Neutrophils (%) (Auto) 68 % (31-73) Lymphocytes (%) (Auto) 22 % (24-48) Monocytes (%) (Auto) 10 % (0-9) Eosinophils (%) (Auto) 0 % (0-3) Basophils (%) (Auto) 0 % (0-3) Neutrophils # (Auto) 1.8 x10^3/uL (1.8-7.7) Lymphocytes # (Auto) 0.6 x10^3/uL (1.0-4.8) Monocytes # (Auto) 0.3 x10^3/uL (0.0-1.1) Eosinophils # (Auto) 0.0 x10^3/uL (0.0-0.7) Basophils # (Auto) 0.0 x10^3/uL (0.0-0.2) Sodium Level 149 mmol/L (136-145) Potassium Level 4.3 mmol/L (3.5-5.1) Chloride Level 112 mmol/L (98-107) Carbon Dioxide Level 32 mmol/L (21-32) Anion Gap 5 (6-14) Blood Urea Nitrogen 36 mg/dL (7-20) Creatinine 1.0 mg/dL (0.6-1.0) Estimated GFR (Cockcroft-Gault) 52.6 BUN/Creatinine Ratio 36 (6-20) Glucose Level 132 mg/dL (70-99) Calcium Level 7.8 mg/dL (8.5-10.1) Total Bilirubin 1.7 mg/dL (0.2-1.0) Aspartate Amino Transf (AST/SGOT) 129 U/L (15-37) Alanine Aminotransferase (ALT/SGPT) 197 U/L (14-59) Alkaline Phosphatase 81 U/L (46-116) Total Protein 4.2 g/dL (6.4-8.2) Albumin 1.4 g/dL (3.4-5.0) Albumin/Globulin Ratio 0.5 (1.0-1.7) Influenza Type A Antigen Negative (NEGATIVE) Influenza Type B Antigen Negative (NEGATIVE) Assessment/Plan Assessment/Plan Assessment: Pancytopenia Generalized weakness Failure to thrive Community-acquired pneumonia Atrial fibrillation COPD Parkinson's History of spasmodic torticollis Recommendations: -Reviewed results of recently obtained evaluation for pancytopenia. She does not have B12 or folate deficiency, SPEP was normal, free light chains were mildly abnormal. -Given constitutional symptoms and new pancytopenia, recommend bone marrow biopsy for further evaluation of pancytopenia if continued medical care desired. Given poor functional status and declining health, if she plans on transitioning to supportive care and hospice, foregoing a bone marrow biopsy is reasonable -Recommend ultrasound abdomen for evaluation of splenomegaly -Monitor CBC daily. Transfuse for hemoglobin less than 7 and for platelets less than 10. -Management of pneumonia per Dr. Bull -Rest per Dr. John Ford MD Medical Oncology/Hematology Ph: [phone] GRAY FORD MD Sep 22, 2020 11:51
[2020-09-22] MEDS ORDERED: METOPROLOL IV PUSH 5 MG/5 ML VIAL. IVP PRN (12:45)
[2020-09-22] MEDS ORDERED: ACETAMINOPHEN 650 MG SUPP.RECT. PR PRN (12:45)
--- NOTE | 2020-09-22 13:10 | PDOC ---
Infectious Disease Note Vital Signs: Vital Signs Vital Signs Date Time Temp Pulse Resp B/P (MAP) Pulse Ox O2 Delivery O2 Flow Rate FiO2 09/22/20 11:12 101.5 108 32 137/71 (93) 88 Nasal Cannula 5.0 101.5 Physical Exam: PHYSICAL EXAM GENERAL: Weak-appearing female, lying in bed, answers very few questions, lethargic. Continues to have intermittent shaking HEENT: Normocephalic, atraumatic. Oral mucosa dry. I did not open the mouth to do the full exam. NECK: Supple. LUNGS: Scattered rhonchi present. HEART: S1, S2, no murmurs. ABDOMEN: Soft, nontender, bowel sounds present. EXTREMITIES: No edema. DERMATOLOGY: Numerous abrasions present in the lower extremity, does not appear infected. 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 does answer a few questions, moves all 4 ex tremities Medications: Inpatient Meds: Current Medications Medications (Trade) Dose Ordered Sig/Regan Start Time Stop Time Status Last Admin Dose Admin Acetaminophen (Tylenol Supp) 650 mg PRN Q6HRS PRN 09/22/20 12:45 Acetaminophen (Tylenol) 650 mg PRN Q4HRS PRN 09/20/20 16:30 09/21/20 16:29 DC 09/21/20 12:03 650 MG Acetaminophen/ Hydrocodone Bitart (Lortab 10/325) 1 tab PRN Q6HRS PRN 09/20/20 19:45 Amiodarone HCl (Cordarone) 200 mg DAILY 09/21/20 09:00 Carbidopa/Levodopa (Sinemet 25/100) 1 tab TID 09/20/20 21:00 09/21/20 14:43 1 TAB Cefepime HCl (Maxipime) 1 gm DAILY 09/21/20 10:30 09/22/20 10:00 1 GM Dexamethasone Sodium Phosphate (Decadron) 10 mg 1X ONCE 09/20/20 17:00 09/20/20 17:01 DC 09/20/20 16:54 10 MG Diltiazem HCl (Cardizem 24hr Cd) 120 mg DAILY 09/21/20 09:00 Famotidine (Pepcid) 20 mg QHS 09/21/20 21:00 Furosemide (Lasix) 20 mg DAILY 09/21/20 09:00 09/21/20 10:09 DC 09/21/20 09:38 20 MG Gabapentin (Neurontin) 300 mg TID 09/20/20 21:00 09/21/20 14:43 300 MG Lactobacillus Rhamnosus (Culturelle) 1 cap BID 09/21/20 10:00 Levothyroxine Sodium (Synthroid) 88 mcg DAILY06 09/21/20 06:00 09/21/20 05:57 88 MCG Linezolid/Dextrose 300 ml @ 300 mls/hr Q12HR 09/20/20 21:00 09/20/20 19:49 DC Lorazepam (Ativan Inj) 0.25 mg 1X ONCE 09/22/20 00:15 09/22/20 00:16 DC Metoprolol Succinate (Toprol Xl) 12.5 mg DAILY 09/21/20 09:00 Metoprolol Tartrate (Lopressor Vial) 10 mg PRN Q6HRS PRN 09/22/20 12:45 Mirtazapine (Remeron) 7.5 mg QHS 09/20/20 21:00 09/20/20 23:01 7.5 MG Morphine Sulfate (Morphine Sulfate) 2 mg PRN Q2HR PRN 09/20/20 16:30 09/21/20 16:29 DC Morphine Sulfate (Ms Contin) 30 mg BID 09/20/20 21:00 09/20/20 23:01 30 MG Ondansetron HCl (Zofran) 4 mg PRN Q8HRS PRN 09/20/20 16:30 09/21/20 16:29 DC Pantoprazole Sodium (Protonix) 40 mg DAILYAC 09/21/20 07:30 09/21/20 09:34 DC Pharmacy Consult (C.diff Med Screen By Rx) 1 each 1X 09/20/20 20:30 Cancel Piperacillin Sod/ Tazobactam Sod 3.375 gm/Sodium Chloride 50 ml @ 100 mls/hr 1X ONCE 09/20/20 17:00 09/20/20 17:29 DC 09/20/20 16:57 100 MLS/HR Polyethylene Glycol (miraLAX PACKET) 17 gm DAILY 09/21/20 09:00 Potassium Chloride 20 meq/ Dextrose/Sodium Chloride 1,010 ml @ 75 mls/hr [id number] 09/21/20 12:00 09/22/20 00:30 75 MLS/HR Potassium Chloride (Klor-Con) 10 meq DAILY 09/21/20 09:00 Vancomycin HCl (Vanco Per Pharmacy) 1 each PRN DAILY PRN 09/20/20 19:45 09/22/20 11:11 1 EACH Vancomycin HCl (Vancomycin Trough Level) 1 each 1X ONCE 09/23/20 00:00 09/23/20 00:01 Vancomycin HCl 1.25 gm/Sodium Chloride 500 ml @ 250 mls/hr 1X ONCE 09/20/20 19:45 09/20/20 21:44 DC 09/21/20 00:20 250 MLS/HR Vancomycin HCl 750 mg/Sodium Chloride 250 ml @ 250 mls/hr Q24H 09/22/20 00:30 09/22/20 00:23 250 MLS/HR Vitamin A/Vitamin D (Vitamin A & D Ointment) 1 brittney TID 09/21/20 21:00 09/22/20 09:00 1 BRITTNEY Labs: Lab Laboratory Tests Test 09/22/20 08:45 09/22/20 10:00 White Blood Count 2.7 x10^3/uL (4.0-11.0) Red Blood Count 3.30 x10^6/uL (3.50-5.40) Hemoglobin 8.8 g/dL (12.0-15.5) Hematocrit 26.7 % (36.0-47.0) Mean Corpuscular Volume 81 fL (79-100) Mean Corpuscular Hemoglobin 27 pg (25-35) Mean Corpuscular Hemoglobin Concent 33 g/dL (31-37) Red Cell Distribution Width 17.6 % (11.5-14.5) Platelet Count 35 x10^3/uL (140-400) Neutrophils (%) (Auto) 68 % (31-73) Lymphocytes (%) (Auto) 22 % (24-48) Monocytes (%) (Auto) 10 % (0-9) Eosinophils (%) (Auto) 0 % (0-3) Basophils (%) (Auto) 0 % (0-3) Neutrophils # (Auto) 1.8 x10^3/uL (1.8-7.7) Lymphocytes # (Auto) 0.6 x10^3/uL (1.0-4.8) Monocytes # (Auto) 0.3 x10^3/uL (0.0-1.1) Eosinophils # (Auto) 0.0 x10^3/uL (0.0-0.7) Basophils # (Auto) 0.0 x10^3/uL (0.0-0.2) Sodium Level 149 mmol/L (136-145) Potassium Level 4.3 mmol/L (3.5-5.1) Chloride Level 112 mmol/L (98-107) Carbon Dioxide Level 32 mmol/L (21-32) Anion Gap 5 (6-14) Blood Urea Nitrogen 36 mg/dL (7-20) Creatinine 1.0 mg/dL (0.6-1.0) Estimated GFR (Cockcroft-Gault) 52.6 BUN/Creatinine Ratio 36 (6-20) Glucose Level 132 mg/dL (70-99) Calcium Level 7.8 mg/dL (8.5-10.1) Total Bilirubin 1.7 mg/dL (0.2-1.0) Aspartate Amino Transf (AST/SGOT) 129 U/L (15-37) Alanine Aminotransferase (ALT/SGPT) 197 U/L (14-59) Alkaline Phosphatase 81 U/L (46-116) Total Protein 4.2 g/dL (6.4-8.2) Albumin 1.4 g/dL (3.4-5.0) Albumin/Globulin Ratio 0.5 (1.0-1.7) Influenza Type A Antigen Negative (NEGATIVE) Influenza Type B Antigen Negative (NEGATIVE) Objective: Assessment: 1. Fever. 2. Acute hypoxic respiratory failure, likely secondary from suspected pneumonia. COVID-19 negative 3. Manera infiltrate 4. Large unchanged hiatal hernia with elevated diaphragm. 5. Thrombocytopenia and anemia.Chronic 6. Hyperbilirubinemia. 7. History of atrial fibrillation, on amiodarone. 8. Abnormal liver function tests. 9. Generalized weakness. 10. Chronic obstructive pulmonary disease, on chronic O2, 2 liters by nasal cannula at correction. 11. Chronic kidney disease. 12. COVID negative Plan: Plan of Care Continue IV Vanco and cefepime increase the dose of latter Monitor labs and cultures. Maintain aspiration precaution. Critically ill. Prognosis is poor. Continue supportive care. Discussed with KHADIJAH. BISMARK VASQUEZ MD Sep 22, 2020 13:09
[2020-09-22 15:17] VITALS: BP 88/41
[2020-09-22] MEDS ORDERED: POTASSIUM CL 20MEQ D5-0.45NACL 1,000 ML IV SCH (16:00)
--- NOTE | 2020-09-22 16:07 | NUR ---
SALTY following for discharge planning. SALTY spoke with RN and reviewed chart. Pt remains on 5l 02, and IV Meropenem. SALTY faxed clinicals to [facility] to update. Discharge plan is to return to [facility] on discharge. SALTY following. Addendum: 09/22/20 at 1716 by YAIMA POND Pt resides in [place] but plan is for SNU on discharge. Pt swabbed again for COVID.
[2020-09-22 19:00] VITALS: BP 93/71
[2020-09-22] MEDS: FAMOTIDINE 20 MG TABLET. PO SCH (20:11)
[2020-09-22] MEDS: MIRTAZAPINE 7.5 MG TABLET. PO SCH (20:11)
[2020-09-22] MEDS ORDERED: CEFEPIME HCL IV Push 1 GM VIAL. IVP SCH (21:00)
[2020-09-22 23:00] VITALS: BP 83/51
[2020-09-23 01:23] LABS: VANC TR 7.4 mcg/mL (10.0-20.0)
[2020-09-23 03:00] VITALS: BP 90/47
--- NOTE | 2020-09-23 04:19 | NUR ---
Rapid Response Note: Rapid response called by patient's RN for hypotension at 0415--patient is DNR. Upon arrival, patient without spontaneous respirations and telemetry shows asystole. RN to notify physician/family of patient's passing.
--- NOTE | 2020-09-23 04:28 | NUR ---
At 0405 pt had brief run of vtach. On assessment, pt non-responsive and agonally breathing. BP 27/20 HR 60 and irregular. Rapid response called. Pt in asystole at 0415 and ceased breathing before rapid response team arrived on floor. Called daughterAnjali at [phone] but no answer; message left.
--- NOTE | 2020-09-23 08:15 | NUR ---
Pt transported to [facility]. 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 Appropriate paperwork with patient. Pt rings remain on left hand due to swelling. Pt daughter took other belongings home.
[2020-09-23] MEDS ORDERED: MEROPENEM 500 MG in IV NORMAL SALINE 50ML 50 ML IV SCH (09:00)
--- NOTE | 2020-09-23 09:10 | PDOC3 ---
IM DISCHARGE SUMMARY Date of Admission Date of Admission Date of Admission: Sep 20, 2020 at 16:35 Date of Discharge Date of Discharge September 23, 2020 Primary Diagnosis Primary Diagnosis 1. Pneumonia. 2. Pancytopenia. 3. Urinary tract infection. 4. Acute metabolic encephalopathy. 5. Acute on chronic hypoxic respiratory failure. 6. Physical deconditioning. 7. Cervical dystonia. 8. Parkinsonism. 9. Abnormal involuntary movements. 10. Chronic obstructive pulmonary disease. 11. Essential tremors. 12. Physical deconditioning. 13. Chronic intermittent nausea. 14. History of paroxysmal atrial fibrillation. 15. Anemia. 16. Hyperlipidemia. 17. Diverticulosis. 18. Gastroesophageal reflux disease. 19. Chronic kidney disease, stage 3. 20. Depression. 21. Peripheral neuropathy. Consults Consults Cecilia Bennett MD; Dakota Bull MD; Lee Biswas MD Labs Labs Laboratory Tests Test 09/22/20 10:00 09/23/20 00:45 09/23/20 04:14 Influenza Type A Antigen Negative (NEGATIVE) Influenza Type B Antigen Negative (NEGATIVE) Vancomycin Level Trough 7.4 mcg/mL (10.0-20.0) L Vancomycin Last Dose Date [id number] Vancomycin Last Dose Time 003 Glucose (Fingerstick) 137 mg/dL (70-99) H Brief hospital course Brief hospital course This 85-year-old female who is a resident of [facility] and who was recently admitted here a week ago for change in mental status and thrombocytopenia, was discharged back to the long-term after the initial workup was negative. She declined bone marrow biopsy at that time. The patient was sent back to the Emergency Room yesterday because of the patient feeling like she was going to pass out. She has a history of atrial fibrillation, COPD, congestive heart failure and neuropathy with tremors and cervical dystonia and is on oxygen by nasal cannula 2 liters per minute. In the Emergency Room, CT scan of head was negative for any acute abnormalities. Chest x-ray showed mild atelectasis or infiltrate in the middle, right lung. Urinalysis shows nitrite positive, but few wbc's. She had fever of 101.1 degrees Fahrenheit. WBC count was 2.6 yesterday and 1.8 today, hemoglobin 9.7, platelet count of 36,000 yesterday and 29,000 today and previously a platelet count ranged from 29,000 to 33,000. Her rapid COVID-19 antigen test was negative. BUN 34, creatinine 1. Sodium 137, potassium 4.3, glucose 146, AST 352, ALT 55, total bilirubin 1.8, albumin 2. Because of the fever, leukopenia and pancytopenia and pneumonia as well as possibility of UTI, the patient was admitted for further evaluation and management. For more details regarding the past history, family history, social history, surgical history and other details, please refer to History and Physical. Pneumonia- Discussed with Dr. Malu Biswas for Infectious Disease evaluation and management. The patient was started on Zosyn yesterday and vancomycin. Cefepime has been started. The patient was given IV steroid x 1 yesterday. Acute respiratory failure-continue oxygen by nasal cannula. Consult Dr. Bull for pulmonary evaluation and management. Pneumonia- COVID-19 PCR is negative x2. Influenza A and B were negative. On IV cefepime and vancomycin. CT chest September 21, 2020 IMPRESSION: 1. Bilateral pulmonary opacities suspicious for multifocal pneumonia, likely viral/atypical etiology. 2. Unchanged marked elevation of the left hemidiaphragm. 3. Moderate hiatal hernia. 4. Slightly worsened old T11 and T12 compression fractures. Possible aspiration pneumonia. Order speech therapy evaluation and treatment. Pancytopenia-may be due to myelodysplasia. Patient declined bone marrow biopsy. UTI- E. coli. Blood cultures were negative. In spite of aggressive measures, patient's condition continued to decline and she on September 23, 2020. Medications Current Medications Medications (Trade) Dose Ordered Sig/Regan Route PRN Reason Start Time Stop Time Status Last Admin Dose Admin Vancomycin HCl (Vancomycin Trough Level) 1 each 1X ONCE MC 09/23/20 00:00 09/23/20 00:01 DC 09/23/20 00:30 Metoprolol Tartrate (Lopressor Vial) 10 mg PRN Q6HRS PRN IVP HYPERTENSION 09/22/20 12:45 09/22/20 13:10 Potassium Chloride/Dextrose/ Sod Cl 1,000 ml @ 75 mls/hr [id number] IV 09/22/20 16:00 09/22/20 16:14 Medications reviewed and reconciled for discharge. Allergy Allergies Coded Allergies Type Severity Reaction Last Updated Verified Iodinated Contrast Media Allergy Severe 09/15/20 Yes Comments Discharge Management - 35 minutes. For other details please refer to discharge instructions Justicifation of Admission Dx: Justifications for Admission: Justification of Admission Dx: Comment: CAROLEE DELANEY MD Sep 23, 2020 09:10
--- NOTE | 2020-09-23 17:09 | NUR ---
SW following for discharge planning. SW spoke with RN and reviewed chart. Pt per RN. SW notified [facility]. No further SW needs at this time.
== END 2020-09-23 04:15 | DRG 177 ==
LOC: ER 13:58 → 6 SOUTH 16:35
PROVIDERS: ADMIT Internal Medicine; ATTEND Internal Medicine
DX: J69.0 Pneumonitis due to inhalation of food and vomit (principal); G93.41 Metabolic encephalopathy; J96.21 Acute and chronic respiratory failure with hypoxia; D61.818 Other pancytopenia; I13.0 Hypertensive heart and chronic kidney disease with heart failure and stage 1 through stage 4 chronic kidney disease, or unspecified chronic kidney disease; J44.0 Chronic obstructive pulmonary disease with (acute) lower respiratory infection; N39.0 Urinary tract infection, site not specified; J98.11 Atelectasis; R17 Unspecified jaundice; M48.54XA Collapsed vertebra, not elsewhere classified, thoracic region, initial encounter for fracture; J15.6 Pneumonia due to other Gram-negative bacteria; J15.9 Unspecified bacterial pneumonia; D46.9 Myelodysplastic syndrome, unspecified; I50.9 Heart failure, unspecified; B96.20 Unspecified Escherichia coli [E. coli] as the cause of diseases classified elsewhere; E78.00 Pure hypercholesterolemia, unspecified; E78.5 Hyperlipidemia, unspecified; E89.0 Postprocedural hypothyroidism; F32.9 Major depressive disorder, single episode, unspecified; G20 Parkinson's disease; G24.9 Dystonia, unspecified; G25.0 Essential tremor; G62.9 Polyneuropathy, unspecified; I48.0 Paroxysmal atrial fibrillation; K21.9 Gastro-esophageal reflux disease without esophagitis; K44.9 Diaphragmatic hernia without obstruction or gangrene; K57.90 Diverticulosis of intestine, part unspecified, without perforation or abscess without bleeding; N18.30 Chronic kidney disease, stage 3 unspecified; R62.7 Adult failure to thrive; Z20.822 Contact with and (suspected) exposure to COVID-19; Z66 Do not resuscitate; Z77.22 Contact with and (suspected) exposure to environmental tobacco smoke (acute) (chronic); Z96.649 Presence of unspecified artificial hip joint; F41.9 Anxiety disorder, unspecified; R94.5 Abnormal results of liver function studies; Z80.0 Family history of malignant neoplasm of digestive organs; Z82.3 Family history of stroke; Z85.828 Personal history of other malignant neoplasm of skin; Z90.49 Acquired absence of other specified parts of digestive tract; Z91.041 Radiographic dye allergy status
CPT/HCPCS: 36415; 70450; 71045; 71250; 80053; 80202; 80307; 81001; 82553; 82962; 83605; 83735; 83880; 84145; 84443; 84484; 85025; 85610; 85730; 87040; 87077; 87086; 87186; 87426; 87804; 96365; 96375; J0692; J1100; J2543; J3370; J3480; J3490; J7040; J7042; J7050; U0003; 92610-GN; 99285-25; G0378; J7030